=== PATIENT | female | born 1930 | race Caucasian/White ===

== ENCOUNTER 2016-11-10 12:45 | Inpatient (IN) | payer MEDICARE ==
[~2016-11-10] VITALS: Ht 160 cm; Wt 60.8 kg
[~2016-11-10 12:45] MED LIST: AMLO10TA2 PO; ASPI81TA2 PO; ATEN25TA PO; ATOR20TA59 PO; CITA20TA9 PO; INSU100V8 SQ; LOSA100T44 PO; MULT1TAB69 PO
--- OUTSIDE RECORDS SUMMARY | 2016-11-10 12:50 | XMS REPORT | Continuity of Care Document ---
Author Author [facility] Organization [facility] Address Unknown Phone Unavailable Support Name Relationship Address Phone CANDACE URENA MD Caregiver [address] [place] [address] Unavailable WADE HANNA DO Caregiver [address] [place] [address] Unavailable DON LYNN Next Of Kin [address], [place] [address] Insurance Providers Guarantor Libby Lucia Address [address] [place] [address] Email DENIED NO EMAIL Payer [employer] Policy Number [id number] Subscriber's Name KhariLibby Relationship 17 Self Chief Complaint and Reason for Visit Chief Complaint Altered Mental Status Reason for Visit Hypoglycemia associated with diabetes Problems Active Problems Medical Problem Onset Date Status Mental status alteration Unknown Acute Past Problems Medical Problem Onset Date Hypoglycemia associated with diabetes Unknown Medications Current Home Medications Medication Dose Units Route Directions Days Qty Instructions Start Date Amlodipine Besylate 10 Mg Tablet 1 Tab Oral Daily 01/12/15 Aspirin 81 Mg Tab.chew 1 Tab Oral Daily 01/12/15 Atenolol 25 Mg Tablet 1 Tab Oral Daily 01/12/15 Atorvastatin Calcium 20 Mg Tablet 1 Tab Oral Bedtime 01/12/15 Citalopram Hydrobromide (Citalopram Hbr) 20 Mg Tablet 1 Tab Oral Daily 01/12/15 Insulin Glargine,Hum.rec.anlog (Lantus) 100 Unit/Ml Inj 22 Unit Sub-Q Bedtime 01/12/15 Losartan Potassium 100 Mg Tablet 100 Mg Oral Daily 01/12/15 Multivitamin (Multivitamins) 1 Each Tablet 1 Tab Oral Daily 01/12 Social History Social History Problem Response Recorded Date/Time Onset Date Status Chewing Tobacco Status No 06/04/2016 4:34am Not Applicable Not Applicable Hx Substance Use No 06/04/2016 4:34am Not Applicable Not Applicable Hx Alcohol Use No 06/04/2016 4:34am Not Applicable Not Applicable Query Response Start Date Stop Date Smoking Status Never smoker Hospital Discharge Instructions No hospital discharge instructions. Plan of Care Discharge Date 06/04/16 6:41am Disposition 01 DISCHARGED HOME, SELF-CARE Condition at Discharge Improved Instructions/Education Provided DI for Hypoglycemia Prescriptions See Medication Section Referrals WADE HANNA DO Address: [address] [place] [phone] Additional Instructions/Education Reduce evening insulin to 8 units Lantus each night Abdomen additional small snack before bed See Dr. Hanna later this week for recheck Care Plan and Goals Physician Care Plan Problem: Hypoglycemia related to diabetes/insulin Goal: Follow up with primary care provider Instructions: Take medications and follow care plan as discussed/written Reduce evening insulin to 8 units Lantus each night Abdomen additional small snack before bed See Dr. Hanna later this week for recheck Functional Status No functional status results. Allergies, Adverse Reactions, Alerts Allergen Type Severity Reaction Status Last Updated Pentazocine Allergy Unknown Active 06/04/16 Immunizations Query Response on File Recorded Date/Time Hx Influenza Vaccination Y fall 201301/12/15 11:41am Hx Influenza Vaccination Y fall 201301/12/15 11:41am Vital Signs Acute Vital Signs Vital Response Date/Time Temperature (Fahrenheit) 97.6 deg F (96.8 - 99.1) 06/04/2016 6:41am Temperature (Calculated Celsius) 36.77259 degrees C (36.0 - 37.3) 06/04/2016 6:41am Pulse Rate (adult) 62 bpm (60 - 100) 06/04/2016 6:41am Respiratory Rate 16 breaths/min (10 - 20) 06/04/2016 6:41am O2 Sat by Pulse Oximetry 95 % (90 - 100) 06/04/2016 6:41am Blood Pressure 164/73 mm Hg 06/04/2016 6:41am Height (Feet) 5 feet 06/04/2016 4:28am Height (Inches) 6.00 inches 06/04/2016 4:28am Weight (Kilograms) 64.700 kg 06/04/2016 4:28am Height 5 ft 6 in 06/04/2016 4:28am Weight 142.64 lb 06/04/2016 4:28am Body Mass Index 23.0 kg/m^2 06/04/2016 4:28am Results Laboratory Results Test Name Result Units Flags Reference Collection Date/Time Result Date/ Time Comments White Blood Count 12.2 T/MM3 H 4.5-11.0 06/04/2016 5:06/04/2016 5: 25am Red Blood Count 4.96 M/MM3 4.00-5.20 06/04/2016 5:06/04/2016 5: 25am Hemoglobin 13.4 GM/DL 12-16 06/04/2016 5:06/04/2016 5:25am Hematocrit 41.4 % 36-46 06/04/2016 5:06/04/2016 5:25am Mean Corpuscular Volume 83.5 UM3 80-100 06/04/2016 5:06/04/2016 5: 25am Mean Corpuscular Hemoglobin 27.0 UUG 26-34 06/04/2016 5:2015 5:25am Mean Corpuscular Hemoglobin Concent 32.4 GM/DL 31-37 06/04/2016 5:06/04/2016 5:25am RDW Standard Deviation 43.4 FL 36.9-50.2 06/04/2016 5:06/04/2016 5 :25am Platelet Count 227 T/MM3 130-400 06/04/2016 5:06/04/2016 5:25am Mean Platelet Volume 10.6 UM3 9.4-12.4 06/04/2016 5:06/04/2016 5: 25am Neutrophils (%) (Auto) 84.3 % H 33-66 06/04/2016 5:06/04/2016 5: 25am Lymphocytes (%) (Auto) 9.8 % L 23-45 06/04/2016 5:06/04/2016 5: 25am Monocytes (%) (Auto) 5.1 % 0-9.0 06/04/2016 5:06/04/2016 5:25am Eosinophils (%) (Auto) 0.4 % 0-4 06/04/2016 5:06/04/2016 5:25am Basophils (%) (Auto) 0.2 % 0-2 06/04/2016 5:06/04/2016 5:25am Immature Granulocyte % (Auto) 0.2 % 0.0-0.5 06/04/2016 5:2015 5:25am Absolute Neutrophils (auto) 10.3 T/MM3 H 1.8-7.7 06/04/2016 5:06/04 5:25am Absolute Lymphocytes (auto) 1.2 T/MM3 1-4.8 06/04/2016 5:2015 5:25am Absolute Monocytes (auto) 0.6 T/MM3 0-0.8 06/04/2016 5:06/04/2016 5:25am Absolute Eosinophils (auto) 0.1 T/MM3 0-0.5 06/04/2016 5:2015 5:25am Absolute Basophils (auto) 0.0 T/MM3 0-0.2 06/04/2016 5:06/04/2016 5:25am Absolute Immature Granulocyte (auto 0.02 T/MM3 0.00-0.03 06/04/2016 5: 06/04/2016 5:25am Icterus Index < 2 0-7 06/04/2016 5:06/04/2016 5:33am Chemistry Specimen Hemolysis < 15 0-25 06/04/2016 5:06/04/2016 5 :33am 0-25: Specimen Exhibited No Hemolysis. Turbidity < 20 0-20 06/04/2016 5:06/04/2016 5:33am Sodium Level 142 MEQ/L 134-144 06/04/2016 5:06/04/2016 5:33am Potassium Level 3.0 MEQ/L L 3.6-5 06/04/2016 5:06/04/2016 5:33am Chloride Level 104 MEQ/L 98-107 06/04/2016 5:06/04/2016 5:33am Carbon Dioxide Level 29 MEQ/L 22-30 06/04/2016 5:06/04/2016 5: 33am Anion Gap 9 MEQ/L 5-15 06/04/2016 5:06/04/2016 5:33am Blood Urea Nitrogen 13.0 MG/DL 7-17 06/04/2016 5:06/04/2016 5: 33am Creatinine 0.7 MG/DL 0.7-1.2 06/04/2016 5:06/04/2016 5:33am BUN/Creatinine Ratio 19 RATIO 6-26 06/04/2016 5:06/04/2016 5:33am Glomerular Filtration Rate Calc 79 06/04/2016 5:06/04/2016 5: 33am Glucose Level 107 MG/DL 65-110 06/04/2016 5:06/04/2016 5:33am Calculated Osmolality 273 MOSM/KG 261-280 06/04/2016 5:06/04/2016 5:33am Calcium Level 9.2 MG/DL 8.4-10.2 06/04/2016 5:06/04/2016 5:33am Total Bilirubin 0.80 MG/DL 0.20-1.30 06/04/2016 5:06/04/2016 5: 33am Alkaline Phosphatase 74 U/L 38-126 06/04/2016 5:06/04/2016 5:33am Total Protein 6.7 G/DL 6.3-8.2 06/04/2016 5:06/04/2016 5:33am Albumin 3.9 G/DL 3.5-5.0 06/04/2016 5:06/04/2016 5:33am Globulin 2.8 G/DL 2.4-3.6 06/04/2016 5:06/04/2016 5:33am Albumin/Globulin Ratio 1.4 RATIO 1.1-2.2 06/04/2016 5:06/04/2016 5 :33am Aspartate Amino Transf (AST/SGOT) 24 U/L 14-36 06/04/2016 5:2015 5:33am Alanine Aminotransferase (ALT/SGPT) 25 U/L 9-52 06/04/2016 5:06/04 5:33am Urine Collection Type STRAIGHT CATH 06/04/2016 5:48am 06/04/2016 5: 59am Urine Color YELLOW YELLOW 06/04/2016 5:48am 06/04/2016 5:59am Urine Turbidity CLEAR CLEAR 06/04/2016 5:48am 06/04/2016 5:59am Urine Specific [place] 1.020 1.015-1.025 06/04/2016 5:48am 2015 5:59am Urine pH 7.5 5.0-8.0 06/04/2016 5:48am 06/04/2016 5:59am Urine Leukocyte Esterase NEGATIVE NEGATIVE 06/04/2016 5:48am 2015 5:59am Urine Nitrite NEGATIVE NEGATIVE 06/04/2016 5:48am 06/04/2016 5:59am Urine Protein 1+ A NEGATIVE 06/04/2016 5:48am 06/04/2016 5:59am Urine Glucose (UA) 2+ A NEGATIVE 06/04/2016 5:48am 06/04/2016 5:59am Urine Ketones NEGATIVE NEGATIVE 06/04/2016 5:48am 06/04/2016 5:59am Urine Urobilinogen 0.2 EU/DL NORMAL 06/04/2016 5:48am 06/04/2016 5: 59am Urine Bilirubin NEGATIVE NEGATIVE 06/04/2016 5:48am 06/04/2016 5: 59am Urine Blood TRACE-LYSED A NEGATIVE 06/04/2016 5:48am 06/04/2016 5: 59am Urine WBC 1-3 /HPF 0-5 06/04/2016 5:48am 06/04/2016 6:15am Urine RBC 0-1 /HPF 0-3 06/04/2016 5:48am 06/04/2016 6:15am Urine Squamous Epithelial Cells 0-5 06/04/2016 5:48am 06/04/2016 6: 15am Urine Bacteria TRACE H NEGATIVE 06/04/2016 5:48am 06/04/2016 6:15am Urine Culture Indicated CULT NOT INDICATED 06/04/2016 5:48am 2015 6:15am Glucometer 153 mg/dL H 65-110 06/04/2016 5:47am 06/04/2016 5:52am Procedures No known history of procedures. Encounters Encounter Location Arrival/Admit Date Discharge/Depart Date Attending Provider Departed Emergency Room [facility] 06/04/16 4:15am 06/04/16 6: 41am CANDACE URENA MD Recent Diagnosis
[2016-11-10] MEDS ORDERED: DONE10TA30 PO (13:03)
--- NOTE | 2016-11-10 13:07 | NUR ---
DR DR KNIGHT AT BEDSIDE.
--- NOTE | 2016-11-10 13:34 | NUR ---
STATUS PER RADIOLOGY STAFF, PT REQUESTS PAIN MEDICINE PRIOR TO XRYS. STATUS REPORTED TO DR KNIGHT.
[2016-11-10] MEDS ORDERED: PROMETHAZINE 25 MG INJECTION IM ONE (13:45)
[2016-11-10] MEDS ORDERED: HYDROMORPHONE 2mg/ml INJECTION IM ONE (13:45)
--- NOTE | 2016-11-10 13:55 | NUR ---
RADIOLOGY PT TO RADIOLOGY VIA [facility].
--- NOTE | 2016-11-10 14:14 | NUR ---
RADIOLOGY PT RETURNED.
--- NOTE | 2016-11-10 14:52 | NUR ---
DR DR KNIGHT AT BEDSIDE.
--- NOTE | 2016-11-10 15:00 | ERPDOC ---
Departure Disposition Decision Date: Nov 10, 2016 Disposition Decision Time: 15:03 Disposition: [address] [facility] Impression Impression Impression: Primary Impression: Femoral neck fracture Severity: Moderate Condition: Stable Seen By: Physician only Referrals: WADE HANNA DO (Family) Problems/Meds/Labs Reviewed?: Yes Medications reviewed and manag: Yes Follow up care ordered?: Yes Mental Status: Alert, Oriented HPI - Fall/Injury General Chief Complaint: Fall Stated Complaint: FALL 5 DAYS AGO LEFT HIP PAIN Time Seen by Provider: 13:06 HPI - Fall/Injury Initial Comments 86-year-old female presents with left hip pain. Patient fell approximately a week ago, has had some pain in the hip since then but has been up moving ambulating. Today the pain became bad enough she was in tears as she tried to walk, she finally agreed to let her granddaughter bring her to the emergency department. Patient has severe pain trying to bear weight, much more comfortable lying on her back with her foot externally rotated. No fever or chills no other injuries. Allergies: Coded Allergies: pentazocine (Verified Allergy, Unknown, 11/10/16) Past History Past Medical History Metabolic: diabetes, hypertension GI: gallbladder disease Female: UTI Neurological: TIA Psychological: dementia, depression Surgical History General: appendix, gallbladder Family History Family PMH: FOUND: hypertension Vaccines Hx Influenza Vaccination: Yes (FALL 2013) Social History Smoking Status: Never smoker Does patient use chewing tobac: No Second Hand Exposure: No Substance Use Type: does not use Alcohol Intake: none Record Review Pertinent history updated: Yes Review of Systems Musculoskeletal General: see HPI All other Systems All Other Systems: Reviewed and Negative Physical Exam General General Nourishment: well nourished, well developed, appears stated age, no acute distress General Body Habitus: disheveled Vitals and Pain First Documented Vital Signs Date Time Temp Pulse Resp B/P Pulse Ox O2 Delivery O2 Flow Rate FiO2 11/10/16 12:47 97.4 65 20 182/81 100 Room Air Weight: Kilograms: 61.500 Height (feet): 5 Height (inches): 4.00 Triage Pain Scale: Normal Exams: Head: Normocephalic w/o trauma Chest/Resp: Clear all naqvi, with good airflow, and symmetry bilaterally CV: Regular rate and rhythm, without murmur or gallop, Pulses 2+ all extremities, capillary refill, <2 seconds all ext., no pedal edema noted Abdomen: Bowel sounds positive, soft, non-tender, non-distended, no hepatosplenomegaly, masses or bruits noted Neurologic: Patient is alert, and oriented, cranial nerves, motor/sensory/ cerebellar, exams w/o gross deficits, to observation Psychiatric: Patient exhibits, appropriate attention, emotion and affect Musculoskeletal (brief) Comments Tenderness left greater trochanter. Patient will not allow me to lift her leg due to pain. Foot is externally rotated for comfort. Differential Diagnoses Considering: Contusion, Dislocation, Fracture, Strain, Other (hip fracture, hip dislocation) Progress Results/Orders Orders Procedure Category Date Status Time Hip Left 2 View RAD 11/10/16 Taken 13:10 Promethazine PHA 11/10/16 Complete (Phenergan) 13:45 Hydromorphone PHA 11/10/16 Complete (Dilaudid) 13:45 Chest 1 View RAD 11/10/16 Taken 14:07 Medications Current ED Medications Promethazine HCl (Phenergan) 25 mg O ONCE IM Last administered on 11/10/16 13 :49; Start 11/10/16 at 13:45; Stop 11/10/16 at 13:46; Status DC Hydromorphone HCl (Dilaudid) 0.5 mg O ONCE IM Last administered on 11/10/16t 13:47; Start 11/10/16 at 13:45; Stop 11/10/16 at 13:46; Status DC Progress Progress X-ray shows femur neck fracture. It is quite impressive that the patient is able to ambulate for a week on this. She is amenable to having surgery. Dr. Perry was consulted and is evaluating appropriate treatment. Patient will be admitted to hospitalist, Dr. Sosa accepted the admission. Patient is nothing by mouth with IV fluids. She was given 0.5 mg Dilaudid and 25 mg Phenergan IM. Had excellent pain relief with that. JAMARCUS KNIGHT MD Nov 10, 2016 15:00
--- NOTE | 2016-11-10 15:22 | NUR ---
REPORT GIVEN TO [facility].
--- NOTE | 2016-11-10 15:35 | NUR ---
DEPART TO SURGICAL 111 VIA CART, GRANDDAUGHTER AT BEDSIDE AT DEPART.
--- NOTE | 2016-11-10 15:35 | NUR ---
Admit Pt admitted to room 111 at this time from ED via cart.
[2016-11-10] MEDS ORDERED: FENTANYL 100mcg/2ml INJECTION IV ONE (15:45)
[2016-11-10 15:50] VITALS: BP 179/79; PULSE 64; RESP 16; O2SAT 100
[2016-11-10 15:52] VITALS: Ht 160 cm; Wt 60.8 kg
[2016-11-10] MEDS ORDERED: ACETAMINOPHEN 325 MG TABLET PO PRN (16:00)
[2016-11-10] MEDS ORDERED: ALBUTEROL INH.SOLN. 2.5 MG/0.5 ML (0.5%) Neb. AEROSOL PRN (16:00)
[2016-11-10] MEDS ORDERED: MILK OF MAGNESIA 30 ML SUSP PO PRN (16:00)
[2016-11-10] MEDS ORDERED: ONDANSETRON 4mg/2ml INJECTION IV PRN (16:00)
[2016-11-10] MEDS ORDERED: ACETAMINOPHEN 650 MG SUPPOSITORY RECTALLY PRN (16:00)
[2016-11-10] MEDS ORDERED: OLANZAPINE ZYDIS PO PRN (16:30)
[2016-11-10] MEDS ORDERED: ENOXAPARIN 40 MG/0.4 ML INJECTION SQ ONE (16:30)
[2016-11-10 16:34] LABS: HGB - HEMOGLOBIN 13.1 GM/DL (12-16); MEAN CORPUSCULAR HGB 26.4 UUG (26-34); MEAN CORPUSCULAR HGB CONC(MCHC 32.8 GM/DL (31-37); MEAN CORPUSCULAR VOLUME 80.6 UM3 (80-100); MEAN PLATELET VOLUME 10.7 UM3 (9.4-12.4); RED BLOOD COUNT 4.96 M/MM3 (4.00-5.20); WBC - WHITE BLOOD COUNT 10.1 T/MM3 (4.5-11.0)
--- NOTE | 2016-11-10 16:39 | HPPDOC ---
DANAY MCCONNELL Mitchell [employer] 11/10/16 1607: HPI - Adult Date DATE: 11/10/16 TIME: 16:07 General Chief Complaint: left hip pain History of Present Illness Radha Lucia is an 86 y/o lady with a hx of Alzheimer dementia. She lives at her granddaughter's house, and her granddaughter is her animal caretaker supervisor. Radha is a poor historian, and was unable to answer questions. ROS was limited because of her dementia and acute pain, and granddaughter had limited knowledge regarding PMH. Per granddaughter's report, Radha slipped and fell in the kitchen 5 days ago. She has been ambulatory since then up until 2 days ago. Her granddaughter is worried she might have fallen again, though it would most have likely been in the middle of the night and unwitnessed. Radha has not been able to bear weight and has been complaining of severe left hip pain. She otherwise has been in good health - no recent fever or chills, URI symptoms, difficulty breathing, n/v/d, or urinary changes. She did have the stomach flu about 1 month ago and her appetite isn't quite back up to par. Radha's granddaughter tried to help her in the car, but she was unable to get her safely loaded, and activated 911. She was transported to the ED where left hip xray confirmed left hip fracture. She received IM Phenergan and Dilaudid in the ED as well. Dr. Mathews was contacted, and the patient was admitted to inpatient status. LOS is expected to exceed two overnights given need for surgical intervention. Past Medical History Past Medical History Patient's Medical History: (1) TIA (transient ischemic attack) (2) CAD (coronary artery disease) (3) HTN (hypertension) (4) Type 2 diabetes mellitus (5) Alzheimer's dementia Surgical History Patient's Surgical History: Coronary stent Appendectomy Cholecystectomy Current Medications Home Meds Reported Medications Donepezil HCl (Donepezil HCl) 10 Mg Tablet, 10 MG PO DAILY 11/10/16 Insulin Glargine,Hum.rec.anlog (Lantus) 100 Unit/Ml Inj, 6-10 UNIT SQ HS 01/12/15 Aspirin (Aspirin) 81 Mg Tab.chew, 81 MG PO DAILY 01/12/15 Multivitamin (Multivitamins) 1 Each Tablet, 1 TAB PO DAILY 01/12/15 Atenolol (Atenolol) 25 Mg Tablet, 25 MG PO BID 01/12/15 Citalopram Hydrobromide (Citalopram HBr) 20 Mg Tablet, 20 MG PO DAILY 01/12/15 Amlodipine Besylate (Amlodipine Besylate) 10 Mg Tablet, 10 MG PO DAILY 01/12/15 Atorvastatin Calcium (Atorvastatin Calcium) 20 Mg Tablet, 20 MG PO HS 01/12/15 Losartan Potassium (Losartan Potassium) 100 Mg Tablet, 100 MG PO DAILY 01/12/15 Allergies: Coded Allergies: pentazocine (Verified Allergy, Unknown, 11/10/16) Family History Family History: Unobtainable from patient. Social History Smoking Status: Never smoker Does patient use chewing tobac: No Second Hand Exposure: No Substance Use Type: does not use Alcohol Intake: none Advance Directives: No DPOA for Healthcare Only Review of Systems Unable to Obtain ROS Due to: dementia Comments Limited ROS obtained per granddaughter - see HPI Constitutional: REPORTS: weight loss (used to wear size XL now is almost a small. Gradual weight loss over the last couple of years.) Physical Exam General General Nourishment: well nourished, well developed, thin Vital Signs Vital Signs Date Time Temp Pulse Resp B/P Pulse Ox O2 Delivery O2 Flow Rate FiO2 11/10/16 15:55 16 11/10/16 15:50 64 179/79 100 Room Air 11/10/16 15:30 98.7 Height (Feet): 5 Height (Inches): 3.00 Eyes Brief: FOUND: PERRL, NOT FOUND: scleral icterus ENMT Brief: NOT FOUND: mucosa moist (slightly dry) Neck Brief: NOT FOUND: adenopathy Respiratory Auscultation: FOUND: normal Cardiovascular Auscultation: FOUND: S1, S2, regular Peripheral Pulses: 2+: Dorasalis Pedis (L), Dorsalis Pedis (R), Posterior Tibial (L), Posterior Tibial (R), Radial (L), Radial (R) Edema: 0: Anasarca, Arm (L), Arm (R), Face, Leg (L), Leg (R) Abdomen Inspection: NOT FOUND: distention Palpation: FOUND: soft, NOT FOUND: tender Auscultation: FOUND: normo active Musculoskeletal (brief) Musculoskeletal Brief: FOUND: deformity (left leg shortened) Integumentary (brief) Integumentary Brief: FOUND: dry, warm Neurologic (brief) Neurological Brief: FOUND: cranial 2-12 intact (grossly intact but pt is unable to follow commands consistently) Neurologic GCS Eye Opening: (4)Spontaneous GCS Verbal: (4)Confused GCS Motor: (6)Obeys Commands RN Documented GCS Eye Opening: (4)Spontaneous Verbal: (4)Confused Motor: (6)Obeys Commands Total: 14 - suspect baseline Psychiatric (brief) FOUND: alert, attentive, oriented (to self) Assessment & Plan Problems: (1) Femoral neck fracture Status: Acute (2) Alzheimer's dementia Status: Chronic (3) CAD (coronary artery disease) Status: Chronic (4) HTN (hypertension) Status: Chronic (5) Type 2 diabetes mellitus Status: Chronic (6) TIA (transient ischemic attack) Status: Chronic Plan/Intensity of Service Admit, inpatient status. Dr. Mathews attending. PCP: Dr. Tamez Code status: Granddaughter believes that patient would want DNR, but no orders have been signed. Will leave full code for the time being. Consult CM to help with advanced directives and to assist with discharge planning. Granddaughter was advised that she will most likely need to go to SNF or rehab after hospital stay. Dx: Left femoral neck fracture. Consult Dr. Perry. He will plan on sx tomorrow am. OK with 1-time dose of Lovenox now. Need to medically clear - labs have been ordered after arrival to the surgical unit - CBC, CMP, INR for preop clearance; type and screen because of fracture and blood loss; check TSH, vitamin B12, and prealbumin with hx of dementia and decreased appetite. Check A1c d/t DM. Insert Leggett catheter for comfort and check UA. Check EKG - mild bradycardia noted . Monitor blood glucose QID. Cont. Lantus HS. Hold ASA, amlodipine, and losartan to minimize chance of periop. hypotension. Continue BB for now. Hx of dementia - will ask ST to evaluate her given risk for dysphagia. She's also at risk of acute delirium. Will have Zyprexa Zydis available if needed. DVT Prophylaxis: SCD'S Code Status Full Code Hospital Course Summary Disclaimer The hospital course summary below is not to be considered part of the above Progress Note. Hospital Course Summary 11/10/16 Admit, inpatient status. Dr. Mathews attending. PCP: Dr. Tamez Code status: Granddaughter believes that patient would want DNR, but no orders have been signed. Will leave full code for the time being. Consult CM to help with advanced directives and to assist with discharge planning. Granddaughter was advised that she will most likely need to go to SNF or rehab after hospital stay. Dx: Left femoral neck fracture. Consult Dr. Perry. He will plan on sx tomorrow am. OK with 1-time dose of Lovenox now. Need to medically clear - labs have been ordered after arrival to the surgical unit - CBC, CMP, INR for preop clearance; type and screen because of fracture and blood loss; check TSH, vitamin B12, and prealbumin with hx of dementia and decreased appetite. Check A1c d/t DM. Insert Leggett catheter for comfort and check UA. Check EKG - mild bradycardia noted . Monitor blood glucose QID. Cont. Lantus HS. Hold ASA, amlodipine, and losartan to minimize chance of periop. hypotension. Continue BB for now. Hx of dementia - will ask ST to evaluate her given risk for dysphagia. She's also at risk of acute delirium. Will have Zyprexa Zydis available if needed. KATIE MATHEWS MD 11/10/161922: Past Medical History Current Medications Home Meds Reported Medications Donepezil HCl (Donepezil HCl) 10 Mg Tablet, 10 MG PO DAILY 11/10/16 Insulin Glargine,Hum.rec.anlog (Lantus) 100 Unit/Ml Inj, 6-10 UNIT SQ HS 01/12/15 Aspirin (Aspirin) 81 Mg Tab.chew, 81 MG PO DAILY 01/12/15 Multivitamin (Multivitamins) 1 Each Tablet, 1 TAB PO DAILY 01/12/15 Atenolol (Atenolol) 25 Mg Tablet, 25 MG PO BID 01/12/15 Citalopram Hydrobromide (Citalopram HBr) 20 Mg Tablet, 20 MG PO DAILY 01/12/15 Amlodipine Besylate (Amlodipine Besylate) 10 Mg Tablet, 10 MG PO DAILY 01/12/15 Atorvastatin Calcium (Atorvastatin Calcium) 20 Mg Tablet, 20 MG PO HS 01/12/15 Losartan Potassium (Losartan Potassium) 100 Mg Tablet, 100 MG PO DAILY 01/12/15 Allergies: Coded Allergies: pentazocine (Verified Allergy, Unknown, 11/10/16) Assessment & Plan Problems: (1) Femoral neck fracture Status: Acute (2) TIA (transient ischemic attack) Status: Chronic (3) CAD (coronary artery disease) Status: Chronic (4) HTN (hypertension) Status: Chronic (5) Type 2 diabetes mellitus Status: Chronic (6) Alzheimer's dementia Status: Chronic (7) Abnormal EKG Assessment & Plan: Sinus bradycardia, first-degree block, left atrial enlargement, moderate ST depression. Patient asymptomatic (8) Elevated TSH Status: Acute (9) Hypokalemia Status: Acute (10) UTI (urinary tract infection) Status: Acute Assessment 11/10/2016-I reviewed this chart, the patient history, and the [employer]'s/PA's documented findings as above. We discussed and formulated the assessment and plan as above with the additions below.-Dr. Mathews I've seen and examined the patient and talked with the patient's granddaughter. Currently the patient denies any pain at rest. She denies shortness of breath. Her granddaughter states she ate too sure [employer] for supper. She was restless earlier today but it is better now. She's been in her usual state of health. She had some chest discomfort last week on a couple of occasions and then belched several times and symptoms resolved. Her granddaughter assumed this was indigestion. Otherwise the patient has had no chest pains. On exam the patient is alert and in no acute distress. She has significant dementia. Chest is clear to auscultation. Cardiovascular reveals a regular rate and rhythm without murmur. Abdomen is soft and nontender. Extremities are free of edema. Lab work is reviewed and CMP is essentially normal other than potassium of 3.1 and glucose of 205. CBC is essentially normal. TSH is elevated at 6.24. Pre- albumin is mildly low at 17.2. Hemoglobin A1c is 10.2 Urinalysis shows positive leukocyte esterase, 10-20 white blood cells, 2+ bacteria. Culture is pending EKG shows sinus bradycardia with first-degree AV block. Left atrial enlargement. Moderate ST depression Chest x-ray on my read looks okay Impression left hip fracture History of TIA Dementia-continue Aricept Coronary artery disease-continue beta sharon Hypertension-hold Norvasc and losartan for now Type 2 diabetes mellitus with A1c of 10.5 on Lantus-continue Lantus and give sliding scale insulin UTI-start Rocephin Mildly elevated TSH-start low-dose Synthroid Mild hypokalemia-replace orally and check magnesium Mildly abnormal EKG-check troponin. Patient is not a good historian secondary to dementia We'll get a metabolic bone disease consult Troponin is pending, and if this is normal I think the patient is stable for surgery tomorrow. Recheck potassium tomorrow. DANAY MCCONNELL APRN Nov 10, 2016 16:07 KATIE MATHEWS MD Nov 10, 2016 19:23
[2016-11-10 16:44] LABS: ALBUMIN 3.6 G/DL (3.5-5.0); ALBUMIN/GLOBULIN RATIO 1.1 RATIO (1.1-2.2); ALKALINE PHOSPHATASE 148 U/L (38-126); ALT (SGPT) 29 U/L (9-52); ANION GAP 11 MEQ/L (5-15); AST (SGOT) 18 U/L (14-36); BUN/CREATININE RATIO 27 RATIO (6-26); CALCIUM 8.4 MG/DL (8.4-10.2); CHLORIDE 103 MEQ/L (98-107); CO2 - CARBON DIOXIDE 28 MEQ/L (22-30); CREATININE 0.7 MG/DL (0.7-1.2); GLOMERULAR FILTRATION RATE 79; GLUCOSE 205 MG/DL (65-110); POTASSIUM 3.1 MEQ/L (3.6-5); SODIUM 142 MEQ/L (134-144); TOTAL PROTEIN 6.8 G/DL (6.3-8.2)
[2016-11-10 16:56] LABS: INR 1.28 (0.76-1.04)
[2016-11-10 17:04] LABS: BAND NEUTROPHILS # 0.1 T/MM3; LYMPHOCYTES # (MANUAL) 0.7 T/MM3 (1-4.8); METAMYELOCYTES # 0.1 T/MM3; MONOCYTES # (MANUAL) 0.1 T/MM3 (0-0.8); NEUTROPHILS #(MANUAL)-ABSOLUTE 9.1 T/MM3 (1.8-7.7); TOTAL CELLS COUNTED 100 %
[2016-11-10 17:11] LABS: PREALBUMIN 17.2 MG/DL (17.6-36.0)
[2016-11-10] MEDS: HYDROMORPHONE 2mg/ml INJECTION IV PRN (17:21)
[2016-11-10 17:28] LABS: BLOOD, URINE TRACE-INTACT (NEGATIVE); COLOR,URINE YELLOW (YELLOW); LEUKOCYTE ESTERASE ,URINE 1+ (NEGATIVE); NITRITE,URINE NEGATIVE (NEGATIVE); UROBILINOGEN,URINE 0.2 EU/DL (NORMAL)
--- NOTE | 2016-11-10 17:30 | NUR ---
Leggett Insertion Leggett inserted at this time using sterile technique by EITAN Mejia accompanied by this RN. Pubic hair trimmed prior to nan-care. RN and NT noted caked on barrier cream applied by granddaughter that morning (reported by granddaughter). Nan-area was cleaned with soap and water, as well as Cavillon Avinger. Iodine used during sterile insertion. x1 attempt. Pt tolerated well. Urine cloudy, yellow and pale. Urine Specimen collected at this time. Will continue to monitor.
--- NOTE | 2016-11-10 17:33 | ANESPREOP ---
Anesthesia Record Date and Time DATE: 11/10/16 TIME: 17:26 Proposed Surgical Procedure Allergies: Coded Allergies: pentazocine (Verified Allergy, Unknown, 11/10/16) Ht/Wt/BMI Height: 5 ' 3.00 " Weight: 61.500 kg BMI: 24.0 kg/m2 Vital Signs Date Time Temp Pulse Resp B/P Pulse Ox O2 Delivery O2 Flow Rate FiO2 11/10/16 17:21 18 11/10/16 15:50 64 179/79 100 Room Air 11/10/16 15:30 98.7 Medications Inpatient Medications Current Medications Medications (Trade) Dose Ordered Sig/Hosea Start Time Stop Time Status Last Admin Dose Admin Hydromorphone HCl (Dilaudid) 0.5 mg Q3H PRN 11/10/16 16:00 11/10/16 17:21 0.5 MG Ondansetron HCl 4 mg 4 mg Q6H PRN 11/10/16 16:00 Lactated Ringer's (Lactated Ringers) 1,000 ml @ 75 mls/hr [id number] 11/10/16 16:00 Polyethylene Glycol (Miralax) 17 g DAILY 11/11/16 09:00 Senna/Docusate Sodium (Senna Plus) 1 tab BID 11/10/16 21:00 Magnesium Hydroxide (Mom) 30 ml DAILY PRN 11/10/16 16:00 Acetaminophen (Tylenol Suppository) 650 mg Q6H PRN 11/10/16 16:00 Albuterol (Proventil) 2.5 mg Q2HR PRN 11/10/16 16:00 Acetaminophen (Tylenol Regular Strength) 1-2 Q5H PRN 11/10/16 16:00 Atenolol (TENORMIN 25 mg) 25 mg BID 11/10/16 21:00 Atorvastatin Calcium (LIPITOR 20 mg) 20 mg HS 11/10/16 22:00 Citalopram Hydrobromide (Celexa) 20 mg DAILY 11/11/16 09:00 Donepezil HCl (Aricept) 10 mg HS 11/11/16 22:00 Insulin Glargine (Lantus) 6 unit HS 11/10/16 22:00 Multivitamins/ Minerals (Therapeutic - M) 1 tab DAILY 11/11/16 09:00 Olanzapine (Zyprexa Zydis) 5 mg Q6H PRN 11/10/16 16:30 Amlodipine Besylate (Amlodipine Besylate) 10 Mg Tablet, 10 MG PO DAILY, ( Reported) Last Taken: on 11/09/16 08 Aspirin (Aspirin) 81 Mg Tab.chew, 81 MG PO DAILY, (Reported) Last Taken: on 11/09/16 08 Atenolol (Atenolol) 25 Mg Tablet, 25 MG PO BID, (Reported) Last Taken: on 11/09/161999 Atorvastatin Calcium (Atorvastatin Calcium) 20 Mg Tablet, 20 MG PO HS, (Reported) Last Taken: on 11/09/161999 Citalopram Hydrobromide (Citalopram HBr) 20 Mg Tablet, 20 MG PO DAILY, (Reported) Last Taken: on 11/09/16799 Donepezil HCl (Donepezil HCl) 10 Mg Tablet, 10 MG PO DAILY, (Reported) Last Taken: on 11/10/16 08 Insulin Glargine,Hum.rec.anlog (Lantus) 100 Unit/Ml Inj, 6-10 UNIT SQ HS, (Reported) Last Taken: on 11/09/161999 Losartan Potassium (Losartan Potassium) 100 Mg Tablet, 100 MG PO DAILY, (Reported) Last Taken: on 11/09/16799 Multivitamin (Multivitamins) 1 Each Tablet, 1 TAB PO DAILY, (Reported) Last Taken: on 11/09/16 0800 Currently on Beta Carlos: Yes Beta Carlos not given due to: Other (npo) Medical/Surgical History Anesthesia PMH: Reports: *ASHD (CAD S/P STENT PLACEMENT 2012 IN [place]), * Diabetes, *Hypertension, CVA/Stroke/TIA (HX OF MINI STROKE 1999), Murmur, Other (stomach flu 3 weeks ago. Patient with history of alzheimers) Smoking Status: Never smoker Use Chewing Tobacco?: No Second Hand Exposure: No Substance Use Type: does not use Past Surgical History Orthopedic Surgeries: No Abdominal Surgeries: Yes - TRISTEN GRAMAJO Genitourinary Surgeries: No Cardiac Surgeries: Yes - STENTS NOVEMBER 2012 Endocrine Surgeries: No Reproductive Surgeries: No Neurological Surgeries: No Ear Surgeries: No Nose Surgeries: No Throat Surgeries: No Other Surgeries: No Anesthesia Adverse Reactions: FOUND none Family Hx of Anesthesia Advers: none Pertinent Findings Laboratory Tests 11/10/16 16:19 Test 11/10/16 16:19 Prothromb Time International Ratio 1.28 (0.76-1.04) Physical Exam Respiratory: Lungs clear Cardiovascular: FOUND Regular rate, rhythm, FOUND Systolic murmur Airway Assessment Mallampati Score: III TMD: 2 Fingerbreadths Neck Extension: Fair Teeth: Other (edentulous) Overall Assessment: No Airway Concerns ASA: 3, E Plan Anesthesia Plan: GETA Discussion Discussed risks/options/alternatives of anesthesia and questions answered. Patient consents. Nursing pain assessment noted. Present: [facility] Member [facility] Attestation Statement Prior to the delivery of any anesthetic medication, I examined the patient, developed the plan, obtained the patient's consent and discussed the risk and benefits of the procedure with the patient/guardian. ADDI HORVATH CRNA Nov 10, 2016 17:32
[2016-11-10 17:34] LABS: BACTERIA,URINE 2+ (NEGATIVE); RBC,URINE 0-1 /HPF (0-3); WBC CLUMPS,URINE MODERATE
[2016-11-10 17:35] LABS: SQUAMOUS EPITHELIAL CELL,UR NONE SEEN
[2016-11-10] MEDS: LR 1,000 ML IV SCH (17:44)
[2016-11-10 18:36] VITALS: PULSE 64; RESP 18
[2016-11-10] MEDS ORDERED: DEXTROSE 50% SYRINGE 50ml (Eq. 1 AMP) IV PRN (19:00)
[2016-11-10] MEDS ORDERED: CEFTRIAXONE 1 G in NORMAL SALINE 100 ML IV SCH (19:00)
[2016-11-10] MEDS ORDERED: POTASSIUM CHLORIDE 20 MEQ TABLET PO ONE (19:00)
[2016-11-10] MEDS ORDERED: GLUCOSE ORAL GEL 40% 37.5 G TUBE PO PRN (19:00)
[2016-11-10 20:00] VITALS: BP 147/69; PULSE 51; RESP 14; TEMP 98.4; O2SAT 93
[2016-11-10] MEDS: ATENOLOL 25 MG TABLET PO SCH (22:29)
[2016-11-10] MEDS: ATORVASTATIN 20 MG TABLET PO SCH (22:29)
[2016-11-10] MEDS: INSULIN GLARGINE 100 UNIT/ML SQ SCH (22:31)
[2016-11-10] MEDS: SENNA + DOCUSATE TAB PO SCH (22:31)
[2016-11-10] MEDS: INSULIN LISPRO 100 UNIT/ML SQ PRN (22:54)
[2016-11-11] VITALS (26 sets, daily range): BP systolic 129–183; BP diastolic 62–81; PULSE 55–88; RESP 15–22; TEMP 96.3–98.4; O2SAT 91–97
[2016-11-11] MEDS: HYDROMORPHONE 2mg/ml INJECTION IV PRN ×2 (01:10→23:36)
[2016-11-11 03:46] LABS: BASOPHILS % (AUTO) 0.3 % (0-2); EOSINOPHILS # (AUTO) 0.1 T/MM3 (0-0.5); EOSINOPHILS % (AUTO) 1.6 % (0-4); HCT - HEMATOCRIT 36.4 % (36-46); HGB - HEMOGLOBIN 11.4 GM/DL (12-16); IMMATURE GRANULOCYTE # (AUTO) 0.01 T/MM3 (0.00-0.03); IMMATURE GRANULOCYTE % (AUTO) 0.2 % (0.0-0.5); LYMPHOCYTES # (AUTO) 1.2 T/MM3 (1-4.8); LYMPHOCYTES % (AUTO) 19.9 % (23-45); MEAN CORPUSCULAR HGB 25.6 UUG (26-34); MEAN CORPUSCULAR HGB CONC(MCHC 31.3 GM/DL (31-37); MEAN CORPUSCULAR VOLUME 81.8 UM3 (80-100); MEAN PLATELET VOLUME 10.5 UM3 (9.4-12.4); MONOCYTES # (AUTO) 0.4 T/MM3 (0-0.8); MONOCYTES % (AUTO) 7.1 % (0-9.0); NEUTROPHILS #(AUTO)-ABSOLUTE 4.4 T/MM3 (1.8-7.7); NEUTROPHILS % (AUTO) 70.9 % (33-66); RED BLOOD COUNT 4.45 M/MM3 (4.00-5.20); WBC - WHITE BLOOD COUNT 6.2 T/MM3 (4.5-11.0)
[2016-11-11 03:55] LABS: ANION GAP 6 MEQ/L (5-15); BUN/CREATININE RATIO 27 RATIO (6-26); CHLORIDE 106 MEQ/L (98-107); CO2 - CARBON DIOXIDE 28 MEQ/L (22-30); CREATININE 0.7 MG/DL (0.7-1.2); GLOMERULAR FILTRATION RATE 79; GLUCOSE 109 MG/DL (65-110); POTASSIUM 3.7 MEQ/L (3.6-5); SODIUM 140 MEQ/L (134-144)
[2016-11-11] MEDS: LR 1,000 ML IV SCH ×3 (05:20→19:56)
[2016-11-11] MEDS: LEVOTHYROXINE 25 MCG TABLET PO SCH (06:26)
[2016-11-11] MEDS ORDERED: CEFAZOLIN 1 G in NORMAL SALINE 100 ML IV ONE (07:00)
[2016-11-11] MEDS ORDERED: LIDOCAINE 1% (10mg/ml) 30ml SDV ONE (07:06)
[2016-11-11] MEDS ORDERED: BUPIVACAINE 0.25%/EPI 1:200,000 30ml SDV ONE (07:06)
[2016-11-11] MEDS ORDERED: VANCOMYCIN 1 GRAM INJECTION ONE (07:07)
[2016-11-11] MEDS ORDERED: FENTANYL 250mcg/5ml INJECTION ONE (07:09)
[2016-11-11] MEDS ORDERED: PROPOFOL 200mg 20 ML IV ONE (07:10)
[2016-11-11] MEDS ORDERED: ROCURONIUM 50mg/5ml INJECTION IV ONE (07:10)
--- NOTE | 2016-11-11 07:28 | CONSPD ---
Consultation Info Date DATE: 11/11/16 TIME: 07:23 Reason for Consultation: left displaced femoral neck fx Impression/Recommendation Impression/Recommendation: (1) Femoral neck fracture Status: Acute Qualifiers: Encounter type: initial encounter Fracture type: closed Laterality: left Qualified Codes: S72.002A - Fracture of unspecified part of neck of left femur, initial encounter for closed fracture Recommendation: Cemented left hip hemiarthroplasty. I spoke into the granddaughter who is at the bedside about the surgery and recovery. I called the daughter on the phone but was unable to reach her this morning. Ortho HPI HPI Elements Location: FOUND hip (left) Injury: Yes Pain: FOUND stabbing, FOUND sharp Onset: Sudden Severity: FOUND moderate Duration: FOUND several days Previous Surgery: No Previous Injury: No Treatments Tried: FOUND rest X-ray Findings: FOUND femoral neck fracture Recommendation: FOUND FHR HPI This is a kind 86-year-old female with dementia who lives with her granddaughter. The granddaughter notes that she fell about a week ago and has had increasing hip pain since that time. Yesterday she was unable any longer to bear weight and was brought to the emergency room by EMS. She was then found to have a displaced left femoral neck fracture and was admitted to the hospitalist was consulted for surgical intervention. The patient does have dementia but does not report to me any previous history of left hip pain or surgery. Review of Systems Unable to Obtain ROS Due to: dementia Constitutional: REPORTS: weight loss (used to wear size XL now is almost a small. Gradual weight loss over the last couple of years.) Past Medical History Adult Past Medical History Patient History: (1) TIA (transient ischemic attack) (2) CAD (coronary artery disease) (3) HTN (hypertension) (4) Type 2 diabetes mellitus (5) Alzheimer's dementia Surgical History Patient's Surgical History: Coronary stent Appendectomy Cholecystectomy Current Medications Amlodipine Besylate (Amlodipine Besylate) 10 Mg Tablet, 10 MG PO DAILY, ( Reported) Last Taken: Unknown Dose on 11/09/16 0800 Aspirin (Aspirin) 81 Mg Tab.chew, 81 MG PO DAILY, (Reported) Last Taken: Unknown Dose on 11/09/16 0800 Atenolol (Atenolol) 25 Mg Tablet, 25 MG PO BID, (Reported) Last Taken: Unknown Dose on 11/09/161999 Atorvastatin Calcium (Atorvastatin Calcium) 20 Mg Tablet, 20 MG PO HS, (Reported) Last Taken: Unknown Dose on 11/09/161999 Citalopram Hydrobromide ( Citalopram HBr) 20 Mg Tablet, 20 MG PO DAILY, (Reported) Last Taken: Unknown Dose on 11/09/16 0800 Donepezil HCl (Donepezil HCl) 10 Mg Tablet, 10 MG PO DAILY, (Reported) Last Taken: Unknown Dose on 11/10/16 08 Insulin Glargine,Hum.rec.anlog ( Lantus) 100 Unit/Ml Inj, 6-10 UNIT SQ HS, (Reported) Last Taken: 6 units on 11/09/161999 Losartan Potassium (Losartan Potassium) 100 Mg Tablet, 100 MG PO DAILY, (Reported) Last Taken: Unknown Dose on 11/09/16 08 Multivitamin (Multivitamins) 1 Each Tablet, 1 TAB PO DAILY, (Reported) Last Taken: Unknown Dose on 11/09/16 0800 Allergies Allergies: Coded Allergies: pentazocine (Verified Allergy, Unknown, 11/10/16) Family History Family History: Unobtainable from patient. Vaccines Yes NO OPEN AREAS Social History Smoking Status: Never smoker Does patient use chewing tobac: No Second Hand Exposure: No Substance Use Type: does not use Alcohol Intake: none Advance Directives: No DPOA for Healthcare Only Physical Exam General General: well nourished, well developed, no acute distress Comments Thin Respiratory FOUND non-labored Cardiovascular FOUND pedal pulses intact Capillary Refill: <2 sec Musculoskeletal Comments Left leg shortened and externally rotated Integumentary FOUND dry, FOUND pink, FOUND warm Neurologic FOUND intact to light touch Psychiatric FOUND alert Laboratory Laboratory Tests Test 11/10/16 16:15 11/10/16 16:19 11/10/16 17:14 11/10/16 17:16 Magnesium Level 1.6MG/DL Troponin I < 0.012ng/ml 25-Hydroxy Vitamin D Total Pending 25-Hydroxy Vitamin D2 Pending 25-Hydroxy Vitamin D3 Pending Chemistry Specimen Hemolysis < 15 < 15 White Blood Count 10.1T/MM3 Red Blood Count 4.96M/MM3 Hemoglobin 13.1GM/DL Hematocrit 40.0% Mean Corpuscular Volume 80.6UM3 Mean Corpuscular Hemoglobin 26.4UUG Mean Corpuscular Hemoglobin Concent 32.8GM/DL RDW Standard Deviation 42.6FL Platelet Count 255T/MM3 Mean Platelet Volume 10.7UM3 Immature Granulocyte % (Auto) % Neutrophils (%) (Auto) % Lymphocytes (%) (Auto) % Monocytes (%) (Auto) % Eosinophils (%) (Auto) % Basophils (%) (Auto) % Absolute Immature Granulocyte (auto T/MM3 Absolute Neutrophils (auto) T/MM3 Absolute Lymphocytes (auto) T/MM3 Absolute Monocytes (auto) T/MM3 Absolute Eosinophils (auto) T/MM3 Absolute Basophils (auto) T/MM3 Neutrophils % (Manual) 90.0% Band Neutrophils % 1.0% Lymphocytes % (Manual) 7.0% Monocytes % (Manual) 1.0% Metamyelocytes % 1.0% Absolute Neutrophils (Manual) 9.1T/MM3 Band Neutrophils # 0.1T/MM3 Lymphocytes # (Manual) 0.7T/MM3 Monocytes # (Manual) 0.1T/MM3 Metamyelocytes # 0.1T/MM3 Red Cell Morphology Comment Normal Prothromb Time International Ratio 1.28 Turbidity < 20 Sodium Level 142MEQ/L Potassium Level 3.1MEQ/L Chloride Level 103MEQ/L Carbon Dioxide Level 28MEQ/L Anion Gap 11MEQ/L Blood Urea Nitrogen 19.0MG/DL Creatinine 0.7MG/DL Glomerular Filtration Rate Calc 79 BUN/Creatinine Ratio 27RATIO Glucose Level 205MG/DL Hemoglobin A1c 10.5% Calculated Osmolality 281MOSM/KG Calcium Level 8.4MG/DL Total Bilirubin 1.20MG/DL Icterus Index < 2 Aspartate Amino Transf (AST/SGOT) 18U/L Alanine Aminotransferase (ALT/SGPT) 29U/L Alkaline Phosphatase 148U/L Total Protein 6.8G/DL Albumin 3.6G/DL Globulin 3.2G/DL Albumin/Globulin Ratio 1.1RATIO Prealbumin 17.2MG/DL Vitamin B12 Level Pending Thyroid Stimulating Hormone (TSH) 6.24MIU/L Free Thyroxine Pending Urine Collection Type Leggett indwelling Urine Color Yellow Urine Turbidity Cloudy Urine pH 8.0 Urine Specific [place] 1.015 Urine Protein 1+ Urine Glucose (UA) 2+ Urine Ketones 1+ Urine Blood Trace-intact Urine Nitrite Negative Urine Bilirubin Negative Urine Urobilinogen 0.2EU/DL Urine Leukocyte Esterase 1+ Urine RBC 0-1/HPF Urine WBC 10-20/HPF Urine WBC Clumps Moderate Urine Squamous Epithelial Cells None seen Urine Bacteria 2+ Urine Culture Indicated Cult reflexed &setup Test 11/10/16 22:47 11/11/16 03:36 11/11/16 06:29 Glucometer 223mg/dL 114mg/dL White Blood Count 6.2T/MM3 Red Blood Count 4.45M/MM3 Hemoglobin 11.4GM/DL Hematocrit 36.4% Mean Corpuscular Volume 81.8UM3 Mean Corpuscular Hemoglobin 25.6UUG Mean Corpuscular Hemoglobin Concent 31.3GM/DL RDW Standard Deviation 43.3FL Platelet Count 257T/MM3 Mean Platelet Volume 10.5UM3 Immature Granulocyte % (Auto) 0.2% Neutrophils (%) (Auto) 70.9% Lymphocytes (%) (Auto) 19.9% Monocytes (%) (Auto) 7.1% Eosinophils (%) (Auto) 1.6% Basophils (%) (Auto) 0.3% Absolute Immature Granulocyte (auto 0.01T/MM3 Absolute Neutrophils (auto) 4.4T/MM3 Absolute Lymphocytes (auto) 1.2T/MM3 Absolute Monocytes (auto) 0.4T/MM3 Absolute Eosinophils (auto) 0.1T/MM3 Absolute Basophils (auto) 0.0T/MM3 Turbidity < 20 Sodium Level 140MEQ/L Potassium Level 3.7MEQ/L Chloride Level 106MEQ/L Carbon Dioxide Level 28MEQ/L Anion Gap 6MEQ/L Blood Urea Nitrogen 19.0MG/DL Creatinine 0.7MG/DL Glomerular Filtration Rate Calc 79 BUN/Creatinine Ratio 27RATIO Glucose Level 109MG/DL Calculated Osmolality 272MOSM/KG Calcium Level 8.0MG/DL Icterus Index < 2 Chemistry Specimen Hemolysis < 15 RANGEL BUNCH MD Nov 11, 2016 07:26
--- NOTE | 2016-11-11 08:31 | NUR ---
SHIFT STATUS/SUMMARY Report received at BS in [facility]. All cares assumed. Introduced self to pt et pt grand daughter at BS. Assessment complete. See flowsheet. Pt is Alert to first name and location, confuses otherwise 2/2 alzheimer's. Pt is pleasant and cooperative with cares. PERRL, MAETC/Spont with noted ROM deficit to LLE 2/2 fracture. Pt is sats >92% RA, BLungs CTA with diminished bases. Pt has BSAx4, round SNT abd. Pt infusing LR @75ml/hr to R hand PIV. Leggett to DD. Pt was made NPO p midnoc otherwise swallowed her pills with no complications. Pt in pain at one point in evening, Dilaudid 0.5mg IV given. No complications throughout evening. Pt slept well. Obtained consent from pt daughter this am with witnessing RN. Report given this am in SBAR. All cares resigned.
--- NOTE | 2016-11-11 08:40 | NUR ---
TO OR PT TRANSFERRED TO OR VIA BED AT THIS TIME BY STAFF. FAMILY PRESENT UPON TRANSFER. VITAL SIGNS STABLE ON ROOM AIR. INFORMED CONSENT OBTAINED PRIOR TO TRANSFER. PERSONAL BELONGINGS REMAIN IN ROOM. WILL CONTINUE TO MONITOR. Addendum: 11/11/16 at 1030 by RUY PROCTOR RN PT TO OR AT 0910
[2016-11-11] MEDS: POLYETHYL.GLYCOL 3350 PACKET 17gm PO SCH (08:47)
[2016-11-11] MEDS: MULTIVITAMIN + MINERAL TABLET PO SCH (08:47)
[2016-11-11] MEDS: SENNA + DOCUSATE TAB PO SCH ×2 (08:47→19:58)
[2016-11-11] MEDS: ATENOLOL 25 MG TABLET PO SCH ×3 (08:47→19:57)
[2016-11-11] MEDS ORDERED: TRANEXAMIC ACID 1,000 MG in NORMAL SALINE 100 ML TOP SCH (10:00)
[2016-11-11] MEDS ORDERED: EPHEDRINE SULFATE 50mg/ml INJECTION ONE (10:02)
[2016-11-11] MEDS ORDERED: SUGAMMADEX 200 MG/2 ML INJECTION IV ONE (10:41)
--- NOTE | 2016-11-11 10:59 | PDOPERATE ---
Operative Report Date of Operation 11/11/16 Side: Left Preoperative Diagnosis: displaced subcapital femoral hip fx Postoperative Diagnosis Same as preoperative diagnosis. Operation/Procedure: total hip arthroplasty (left) Surgeon Adam Perry MD Wallet Assembler HERMILO Bermudez Complications None. Anesthesia Plan: GETA Estimated Blood Loss See Anesthesia Record. Fluids Please See Anesthesia Record. Description of Operation Ms. Lucia and her left hip were identified and marked in the the preoperative holding area. She was then brought back to the operating suite and proper anesthesia was administered. She was then positioned lateral on the operating table. The left lower extremity was then prepped and draped in my normal sterile fashion. Timeout was performed with all operating room personnel. Posterior approach was utilized. Approximately 11 cm incision was made sharp dissection was carried through subcutaneous tissue down to the muscle fascia which was then split in line with skin incision. Charnley retractor was placed. The short external rotators were identified and detached and the capsulotomy performed. Femoral neck osteotomy was performed and the neck fragment as well as head fragment were then removed and measured on the back table. We sized the acetabulum to 47. The proximal femur was then prepared with a cookie cutter followed by reaming and broaching to a size 5. I then cemented a size 5 units when femoral component at the proper anteversion. We then trialed with a standard 47 head. This gave excellent stability and good leg length. After thorough irrigation the final standard 47 head was placed and final reduction performed. Betadine solution was used for 3 minutes and then fully irrigated out. 1 g of TXA was also placed and the hip joint allowed to sit 5 minutes and then irrigated out. The capsulotomy was repaired with #1 Ethibond. The muscle fascia was then repaired with #1 Vicryl all by 2-0 Vicryl in subcutaneous tissue followed by running 4-0 Monocryl. Dermabond was then used in a sterile dressing. The drapes removed and she is placed back into a supine position and taken to the recovery room in the care of anesthesia after she had woken from general anesthesia. She tolerated procedure well there were no complications. RANGEL PERRY MD Nov 11, 2016 10:59
[2016-11-11] MEDS ORDERED: MILK OF MAGNESIA 30 ML SUSP PO PRN (11:00)
[2016-11-11] MEDS ORDERED: FENTANYL 100mcg/2ml INJECTION IV PRN (11:15)
[2016-11-11] MEDS ORDERED: ONDANSETRON 4mg/2ml INJECTION IV PRN (11:15)
--- NOTE | 2016-11-11 11:26 | ANESPO ---
Post-Op Note Date 11/11/16 Time: 11:25 Status Pt Participated in Evaluation: Pt participated in person Vital Signs Date Time Temp Pulse Resp B/P Pulse Ox O2 Delivery O2 Flow Rate FiO2 11/11/16 11:10 74 22 160/74 95 Room Air 11/11/16 10:59 98.4 6.00 Respiratory Function: Airway patent, Regular respirations Cardiovascular Function: Regular pulse Mental Status: Alert/oriented (alert and follows commands) Pain Level Intensity: 0 Hydration: IV infusing Complications during Recovery None apparent Follow-Up Instructions Instructions Per Surgeon ADDI HORVATH CRNA Nov 11, 2016 11:26
--- NOTE | 2016-11-11 11:54 | NUR ---
RETURN TO UNIT RETURNED TO ROOM 111 VIA HOSPITAL BED POST PROCEDURE. O2 RA. V/S STABLE. IVF INFUSING. TEIXEIRA TO DEPENDENT DRAINAGE. ICE PACK TO LEFT HIP. DRESSING CLEAN,DRY, AND INTACT. SCD TO BILATERAL LOWER EXTREMITIES. DENIES CHEST PAIN, SHORTNESS OF BREATH OR PAIN TO THE LEFT HIP. CALL LIGHT WITHIN REACH, SIDE RAILS UP X2, BED IN LOWEST POSITION, BED ALARM ACTIVATED. FAMILY AT BEDSIDE.
[2016-11-11] MEDS ORDERED: NOZIN NASAL SWAB NS ONE (13:00)
[2016-11-11] MEDS: INSULIN LISPRO 100 UNIT/ML SQ PRN ×3 (13:05→19:57)
--- NOTE | 2016-11-11 13:54 | DI ---
Indication: ITS.REASON: hip fx PROCEDURE: CHEST 1 VIEW: Encounter: Initial Comparison: January 12, 2015 Findings: The lungs are stable in appearance without new focal airspace consolidation. There is no pleural effusion or pneumothorax. The heart size, pulmonary vascularity and mediastinal contours are unchanged. Tortuous thoracic aorta. IMPRESSION: Stable appearance of the chest without acute cardiopulmonary disease. .
--- NOTE | 2016-11-11 13:55 | DI ---
Indication: ITS.REASON: fall, pain PROCEDURE: HIP LEFT 2 VIEW: Encounter: Initial Comparison: None Findings: Mildly displaced fracture of the subcapital left femoral neck with foreshortening and varus angulation. Bony demineralization. No additional acute fracture or dislocation seen. Impression: Closed posttraumatic left femoral neck fracture. .
--- NOTE | 2016-11-11 14:11 | PNPDOC ---
RASHAWN HERNANDEZ V REAL ESTATE VALUER 11/11/16 1402: Subjective Date DATE: 11/11/16 TIME: 13:59 Subjective Radha is seen this afternoon postoperatively. She is alert and pleasant during examination. She ask why she can not go home today since surgery is over and she is feeling "great". We discussed post-op recovery. Denies feeling short of breath or chest pain. No current left hip pain, Ice pack intact. Tolerated small amount of liquid diet for lunch. Objective Vital Signs Vital signs Vital Signs Date Time Temp Pulse Resp B/P Pulse Ox O2 Delivery O2 Flow Rate FiO2 11/11/16 13:48 Nasal Cannula 2.00 11/11/16 13:25 62 16 155/68 94 11/11/16 12:10 98.1 Height (Feet): 5 Height (Inches): 3.00 Weight (Kilograms): 61.500 General General Appearance: Alert, Orientated x 2, Cooperative, No Acute Distress Eyes (Brief) Eyes: FOUND: EOMI ENMT (Brief) ENMT: FOUND: mucosa moist, normal dentition, NOT FOUND: pharnyx erythema Neck (Brief) Neck: FOUND: midline, NOT FOUND: adenopathy, carotid bruits, tracheal deviation Respiratory (Brief) Respiratory: FOUND: clear all naqvi, equal bilaterally, NOT FOUND: wheezes Cardiovascular (Brief) Cardiac: FOUND: regular rate, regular rhythm, NOT FOUND: murmur, pedal edema Capillary Refill: <2 sec Abdomen (Brief) Abdominal: FOUND: BS normo active x4, soft, NOT FOUND: distended, tender Lymphatic (Brief) Lymphatic: NOT FOUND: adenopathy Musculoskeletal (Brief) Musculoskeletal: NOT FOUND: tenderness Integumentary (Brief) Integumentary: FOUND: dry, pink, warm Neurologic (Brief) Neurological: FOUND: cranial 2-12 intact Psychiatric (Brief) Psychiatric: FOUND: alert, attentive, normal affect, oriented Laboratory Laboratory Laboratory Tests 11/10/16 16:19 11/11/16 03:36 Laboratory Tests 11/10/16 16:19 11/11/16 03:36 Microbiology Microbiology Microbiology Date/Time Source Procedure Growth Status 11/10/16 17:35 Urine, Leggett Indwelling Urine Culture - Preliminary Gram Negative Wayne Resulted Assessment & Plan Problems: (1) Femoral neck fracture Status: Acute Qualifiers: Encounter type: initial encounter Fracture type: closed Laterality: left Qualified Codes: S72.002A - Fracture of unspecified part of neck of left femur, initial encounter for closed fracture (2) TIA (transient ischemic attack) Status: Chronic (3) CAD (coronary artery disease) Status: Chronic (4) HTN (hypertension) Status: Chronic (5) Type 2 diabetes mellitus Status: Chronic (6) Alzheimer's dementia Status: Chronic (7) Abnormal EKG Assessment & Plan: Sinus bradycardia, first-degree block, left atrial enlargement, moderate ST depression. Patient asymptomatic (8) Elevated TSH Status: Acute (9) Hypokalemia Status: Acute (10) UTI (urinary tract infection) Status: Acute Plan/Intensity of Service 11/11/16 Tolerated surgery well this morning. Monitor Accu-Cheks, continue Lantus 6 units at HS along with sliding scale Humalog. On admission, patient's diabetes was uncontrolled. Given that her A1c was 10.5. Continue on IV Rocephin daily for antimicrobial coverage of acute urinary tract infection. Urine culture luminary indicates gram-negative wayne. Will monitor for final report. May switch to oral antibiotic at that time. Continue scheduled senna plus, and MiraLAX for postoperative bowel motivation. Lovenox subcutaneous daily for postoperative prophylaxis. Will confirm with orthopedic team that patient will need this for 30 days postoperatively. Did confirm with patient's granddaughter that [facility] She often sees any of the Nurse Practitioners. Will encourage physical therapy tomorrow to begin postoperative strengthening Metabolic bone disease consultation has been placed Have speech evaluate for dysphasia. Given patient's history of dementia Will recheck CBC tomorrow morning to follow blood counts Code Status Full Code Hospital Course Summary Disclaimer The hospital course summary below is not to be considered part of the above Progress Note. Hospital Course Summary 11/10/16 Admit, inpatient status. Dr. Mathews attending. PCP: Dr. Tamez Code status: Granddaughter believes that patient would want DNR, but no orders have been signed. Will leave full code for the time being. Consult CM to help with advanced directives and to assist with discharge planning. Granddaughter was advised that she will most likely need to go to SNF or rehab after hospital stay. Dx: Left femoral neck fracture. Consult Dr. Perry. He will plan on sx tomorrow am. OK with 1-time dose of Lovenox now. Need to medically clear - labs have been ordered after arrival to the surgical unit - CBC, CMP, INR for preop clearance; type and screen because of fracture and blood loss; check TSH, vitamin B12, and prealbumin with hx of dementia and decreased appetite. Check A1c d/t DM. Insert Leggett catheter for comfort and check UA. Check EKG - mild bradycardia noted . Monitor blood glucose QID. Cont. Lantus HS. Hold ASA, amlodipine, and losartan to minimize chance of periop. hypotension. Continue BB for now. Hx of dementia - will ask ST to evaluate her given risk for dysphagia. She's also at risk of acute delirium. Will have Zyprexa Zydis available if needed. 11/11/16 Tolerated surgery well this morning. Monitor Accu-Cheks, continue Lantus 6 units at HS along with sliding scale Humalog. On admission, patient's diabetes was uncontrolled. Given that her A1c was 10.5. Continue on IV Rocephin daily for antimicrobial coverage of acute urinary tract infection. Urine culture luminary indicates gram-negative wayne. Will monitor for final report. May switch to oral antibiotic at that time. Continue scheduled senna plus, and MiraLAX for postoperative bowel motivation. Lovenox subcutaneous daily for postoperative prophylaxis. Will confirm with orthopedic team that patient will need this for 30 days postoperatively. Did confirm with patient's granddaughter that she is a patient of [facility]. She often sees any of the Nurse Practitioners. Will encourage physical therapy tomorrow to begin postoperative strengthening Metabolic bone disease consultation has been placed Have speech evaluate for dysphasia. Given patient's history of dementia Will recheck CBC tomorrow morning to follow blood counts KATIE MATHEWS MD 11/11/16 192: Assessment & Plan Assessment 11/11/2016-I reviewed this chart, the patient history, and the REAL ESTATE VALUER's/PA's documented findings as above. We discussed and formulated the assessment and plan as above with the additions below.-Dr. Mathews The patient was seen today accompanied by her granddaughter. The patient is postop and doing very well. Vital signs are stable and she is on room air. She denies any pain currently. She is drinking fluids well and is being advanced to a regular diet this evening. She has no complaints. On exam she has dementia and is very pleasant. Chest is clear to auscultation. Cardiovascular reveals a regular rate and rhythm. Abdomen is soft and nontender. Extremities are free of edema. Continue with current care plan Consider restarting aspirin tomorrow for stroke prevention if okay orthopedics and if hemoglobin has not dropped significantly. RASHAWN HERNANDEZ APRN Nov 11, 2016 14:02 KATIE MATHEWS MD Nov 11, 2016 19:21
--- NOTE | 2016-11-11 14:30 | DI ---
Indication: ITS.REASON: Left hip janet arthroplasty PROCEDURE: PELVIS 1-2 VIEW DEDICATED PELV: Encounter: Initial Comparison: Left hip radiographs dated November 10, 2016 Findings: Postoperative changes of left femoral head replacement are seen. There is expected postoperative subcutaneous gas. No evidence of hardware failure or acute fracture. No retained radiopaque surgical instruments or sponges seen. Severe degenerative change in the contralateral right hip. Bony demineralization. Impression: New left femoral head prosthesis without evidence of immediate complication. .
[2016-11-11] MEDS ORDERED: NS 500 ML IV PRN (17:00)
[2016-11-11] MEDS ORDERED: INFLUENZA VAC High Dose 2016-17 (Fluzone HD*)(>=65yo) 0.5ml IM ONE (17:00)
[2016-11-11] MEDS ORDERED: PNEUMOCOCCAL 13 VACCINE 0.5 ML SYRINGE IM ONE (17:00)
[2016-11-11] MEDS ORDERED: CEFAZOLIN 1 G in NORMAL SALINE 100 ML IV SCH (17:00)
[2016-11-11] MEDS ORDERED: PNEUMOCOCCAL VAC. ADMIN. CHARGE INJ ONE (17:30)
[2016-11-11] MEDS ORDERED: INFLUENZA VAC. ADMIN CHARGE INJ ONE (17:31)
[2016-11-11] MEDS ORDERED: CEFTRIAXONE 1 G in NORMAL SALINE 100 ML IV SCH (19:00)
--- NOTE | 2016-11-11 19:31 | NUR ---
SUMMARY PT ORIENTED TO SELF/PERSON ONLY THIS SHIFT. VITAL SIGNS STABLE ON ROOM AIR POST OP. PT'S GRAND DAUGHTER PRESENT IN ROOM THROUGHOUT THE SHIFT AND ASSISTED WITH FEEDING. PT TOLERATED REGULAR FOOD FOR DINNER. PT TURNED Q2H IN THE BED AND HEELS REMAINED ELEVATED OFF OF BED. BED ALARM ON. SIDE RAILS UP X3. ICE PACK REMAINS TO LEFT HIP. DRESSING C/D/I TO LEFT HIP. SCD'S ON BILATERALLY. PT DENIED N/V, CP AND SOA. THIS RN OBTAINED ORDER FOR NORCO 7.5 Q4H PO PRN FOR PAIN THIS AFTERNOON AND ADMINISTERED 1 TAB DUE TO PT HOLLERING OUT AND GRIMACING ON TURNS. THIS RN UTILIZED THE FLACC PAIN SCALE FOR PAIN ASSESSMENT. WILL CONTINUE TO MONITOR CLOSELY.
[2016-11-11] MEDS: ENOXAPARIN 40 MG/0.4 ML INJECTION SQ SCH (19:57)
[2016-11-11] MEDS: ATORVASTATIN 20 MG TABLET PO SCH (19:57)
[2016-11-11] MEDS: DONEPEZIL 10 MG TABLET PO SCH (21:58)
[2016-11-11] MEDS: INSULIN GLARGINE 100 UNIT/ML SQ SCH (21:59)
[2016-11-12] VITALS (12 sets, daily range): BP systolic 116–153; BP diastolic 62–70; PULSE 60–80; RESP 16–20; TEMP 96.7–99.6; O2SAT 87–95
[2016-11-12] MEDS: NOZIN NASAL SWAB NS SCH ×3 (01:15→17:23)
--- NOTE | 2016-11-12 02:12 | NUR ---
ICE PACK PT AND GRANDDAUGHTER INFORMED OF THE NEED FOR THE ICE PACK TO REDUCE SWELLING. PT STATES THAT IT IS TOO COLD AND REFUSES TO HAVE IT IN PLACE. INFORMED GRANDDAUGHTER IF SHE CHANGES HER MIND TO PLEASE ALERT THIS RN SO WE CAN MAKE A FRESH ONE AND PUT IT BACK IN PLACE. WILL CONTINUE TO MONITOR.
--- NOTE | 2016-11-12 05:18 | NUR ---
SHIFT SUMMARY PT HAS BEEN ALERT TO PERSON, VITAL SIGNS STABLE ON ROOM AIR,DENIES C/P,N/V AND SOA. GRANDDAUGHTER HAS BEEN AT THE BEDSIDE ALL EVENING. PT HAS REFUSED TURNING MULTIPLE TIMES ON THIS SHIFT, CRYING OUT WHEN TURNING DOES OCCUR. PRN PAIN MEDICATION GIVEN ON REQUEST OF GRANDDAUGHTER AND UTILIZING FLACC SCALE. WILL CONTINUE TO MONITOR.
[2016-11-12 05:28] LABS: BASOPHILS % (AUTO) 0.4 % (0-2); EOSINOPHILS # (AUTO) 0.1 T/MM3 (0-0.5); EOSINOPHILS % (AUTO) 0.7 % (0-4); HCT - HEMATOCRIT 32.3 % (36-46); IMMATURE GRANULOCYTE # (AUTO) 0.01 T/MM3 (0.00-0.03); IMMATURE GRANULOCYTE % (AUTO) 0.1 % (0.0-0.5); LYMPHOCYTES # (AUTO) 0.8 T/MM3 (1-4.8); LYMPHOCYTES % (AUTO) 10.8 % (23-45); MEAN CORPUSCULAR HGB 25.9 UUG (26-34); MEAN CORPUSCULAR VOLUME 83.7 UM3 (80-100); MEAN PLATELET VOLUME 11.8 UM3 (9.4-12.4); MONOCYTES # (AUTO) 0.5 T/MM3 (0-0.8); MONOCYTES % (AUTO) 7.4 % (0-9.0); NEUTROPHILS #(AUTO)-ABSOLUTE 5.9 T/MM3 (1.8-7.7); NEUTROPHILS % (AUTO) 80.6 % (33-66); RED BLOOD COUNT 3.86 M/MM3 (4.00-5.20); WBC - WHITE BLOOD COUNT 7.3 T/MM3 (4.5-11.0)
[2016-11-12 05:32] LABS: ANION GAP 7 MEQ/L (5-15); BUN/CREATININE RATIO 26 RATIO (6-26); CALCIUM 7.8 MG/DL (8.4-10.2); CHLORIDE 104 MEQ/L (98-107); CO2 - CARBON DIOXIDE 28 MEQ/L (22-30); CREATININE 0.7 MG/DL (0.7-1.2); GLOMERULAR FILTRATION RATE 79; GLUCOSE 180 MG/DL (65-110); POTASSIUM 3.3 MEQ/L (3.6-5); SODIUM 139 MEQ/L (134-144)
[2016-11-12] MEDS ORDERED: TRANEXAMIC ACID 1000 MG/10 ML TOP ONE (06:00)
[2016-11-12] MEDS: LEVOTHYROXINE 25 MCG TABLET PO SCH (06:04)
[2016-11-12] MEDS: INSULIN LISPRO 100 UNIT/ML SQ PRN ×3 (06:13→22:03)
[2016-11-12] MEDS ORDERED: POTASSIUM CHLORIDE 20 MEQ TABLET PO ONE (08:00)
--- NOTE | 2016-11-12 08:06 | PDORTHOPN ---
Subjective Date DATE: 11/12/16 TIME: 08:01 Subjective Radha didn't sleep much early in the night but after some pain meds she did better. No specific complaints. Objective Vital Signs Vital signs Vital Signs 11/11/16 11/12/16 11/12/16 11/12/16 23:36 00:36 01:16 01:22 Temp 99.6 Pulse 68 Resp 18 18 18 B/P 132/67 Pulse Ox 88 93 O2 Delivery Room Air Nasal Cannula O2 Flow Rate 1.00 11/12/16 03:31 Temp 98.8 Pulse 68 Resp 18 B/P 153/69 Pulse Ox 95 O2 Delivery Nasal Cannula O2 Flow Rate 1.00 Height (Feet): 5 Height (Inches): 3.00 Weight (Kilograms): 61.500 General General Appearance: Alert Respiratory (Brief) Respiratory Brief: FOUND: non-labored (Has Oxygen per NC this am.) Cardiovascular (Brief) Cardiac: FOUND: calf soft, nontender, pedal pulses intact Surgical Site Incision: FOUND: Mepilex dressing intact, no drainage Integumentary (Brief) Integumentary Brief: FOUND dry, FOUND pink, FOUND warm Neurologic (Brief) Neurological Brief: FOUND: extremities w/o deficits Psychiatric (Brief) Psychiatric Brief: FOUND: alert, no acute distress Laboratory Laboratory Laboratory Tests 11/10/16 16:19 11/11/16 03:36 11/12/16 04:16 Laboratory Tests 11/10/16 16:19 11/11/16 03:36 11/12/16 04:16 Microbiology Microbiology Microbiology Date/Time Source Procedure Growth Status 11/10/16 17:35 Urine, Leggett Indwelling Urine Culture - Final Proteus Mirabilis Complete Assessment & Plan Problems: (1) Femoral neck fracture Status: Acute Qualifiers: Encounter type: initial encounter Fracture type: closed Laterality: left Qualified Codes: S72.002A - Fracture of unspecified part of neck of left femur, initial encounter for closed fracture Assessment & Plan: Cemented left hip hemiarthroplasty by Dr Perry 11/11/16. Lovenox X [address] Mobilize with PT / OT. F/U in 3 weeks. Hospital Course Summary Disclaimer The visit summary below is not to be considered part of the above Progress Note. Hospital Course 11/10/16 Admit, inpatient status. Dr. Mathews attending. PCP: Dr. Tamez Code status: Granddaughter believes that patient would want DNR, but no orders have been signed. Will leave full code for the time being. Consult CM to help with advanced directives and to assist with discharge planning. Granddaughter was advised that she will most likely need to go to SNF or rehab after hospital stay. Dx: Left femoral neck fracture. Consult Dr. Perry. He will plan on sx tomorrow am. OK with 1-time dose of Lovenox now. Need to medically clear - labs have been ordered after arrival to the surgical unit - CBC, CMP, INR for preop clearance; type and screen because of fracture and blood loss; check TSH, vitamin B12, and prealbumin with hx of dementia and decreased appetite. Check A1c d/t DM. Insert Leggett catheter for comfort and check UA. Check EKG - mild bradycardia noted . Monitor blood glucose QID. Cont. Lantus HS. Hold ASA, amlodipine, and losartan to minimize chance of periop. hypotension. Continue BB for now. Hx of dementia - will ask ST to evaluate her given risk for dysphagia. She's also at risk of acute delirium. Will have Zyprexa Zydis available if needed. 11/11/16 Tolerated surgery well this morning. Monitor Accu-Cheks, continue Lantus 6 units at HS along with sliding scale Humalog. On admission, patient's diabetes was uncontrolled. Given that her A1c was 10.5. Continue on IV Rocephin daily for antimicrobial coverage of acute urinary tract infection. Urine culture luminary indicates gram-negative jaqueline. Will monitor for final report. May switch to oral antibiotic at that time. Continue scheduled senna plus, and MiraLAX for postoperative bowel motivation. Lovenox subcutaneous daily for postoperative prophylaxis. Will confirm with orthopedic team that patient will need this for 30 days postoperatively. Did confirm with patient's granddaughter that she [facility]. She often sees any of the Nurse Practitioners. Will encourage physical therapy tomorrow to begin postoperative strengthening Metabolic bone disease consultation has been placed Have speech evaluate for dysphasia. Given patient's history of dementia Will recheck CBC tomorrow morning to follow blood counts MADDISON CASTANEDA Nov 12, 2016 08:05
[2016-11-12] MEDS: POLYETHYL.GLYCOL 3350 PACKET 17gm PO SCH (08:59)
[2016-11-12] MEDS: ATENOLOL 25 MG TABLET PO SCH ×2 (08:59→22:02)
[2016-11-12] MEDS: SENNA + DOCUSATE TAB PO SCH ×2 (08:59→22:02)
[2016-11-12] MEDS: CYANOCOBALAMIN (B-12) 500mcg TABLET PO SCH (09:00)
[2016-11-12] MEDS: CEPHALEXIN 500 MG CAPSULE PO SCH ×2 (09:00→22:02)
[2016-11-12] MEDS: MULTIVITAMIN + MINERAL TABLET PO SCH (09:00)
--- NOTE | 2016-11-12 09:37 | STEVAL ---
Eval Subjective and History Date/Time of Eval DATE: 11/12/16 TIME: 09:26 Medical Diagnosis femoral neck fx with repair, rule out dysphagia Treatment Order: Assessment Orientations: Alert, Cooperative Primary Complaint: fall with hip fx, difficulty swallowing Pain: Yes (hip pain with movement, nursing aware) Date of Onset of Primary Com: 11/10/16, repair 11/11 Prior History of This Problem: No Patient's Goals: Return home Significant Past Medical Hx: Pt admitted 11/10/16 secondary to fall with femoral neck fx. PMH: TIA, CAD, HTN, type 2 diabetes mellitis, Alzheimre's dementia, UTI, significant gradual weight loss over last 2 years. Medical History Form Reviewed: Yes Residence Type: Private home/apartment Lives With: With Family Caregiver Status: Yes (granddaughter) Prior Functional Status: unknown diet, gradual weight loss Current Functional Status: confusion with minimal risk for aspiration Education Subject: Treatment Plan Instruction Understanding Demo: Pt. verbalizes understand Education Comment TRANSITIONAL LIVING SPECIALIST educated patient on reasoning for evaluation. Patient was agreeable to evaluation. Subjective and History Comment: Pt was alert and cooperative. She was disoriented to place and reason for hospitalization. Dysphagia Evaluation Evaluation Location: Chair Evaluation Angle: 90 Tongue Elevation: Minimal Impairment Tongue Lateralization: No Impairment (WFL) Tongue Protrusion: No Impairment (WFL) Tongue Retraction: No Impairment (WFL) Tongue Extension Midline: No Impairment (WFL) Labial Approximation: No Impairment (WFL) Intraoral Air Pressure: Minimal Impairment (minimal) Volitional Cough: Minimal Impairment Palatal Elevation: No Impairment (WFL) Larynx Elevation During Swallo: Minimal Impairment Saliva Control: No Impairment (WFL) Dentition: Natural Oral Peripheral Exam Comment: Mild generalized weakness. Mildy reduced laryngeal elevation. Lip Seal: Adequate-liquid, Adequate-pudding, Adequate-solid Lingual Manipulation: Adequate-liquid, Adequate-pudding, Adequate-solid Chewing: Inadequate-solid (minimal) Oral cavity clear post swallow: Adequate-liquid, Adequate-pudding, Adequate- solid Swallow initiated w/o delay: Adequate-liquid, Adequate-pudding, Inadequate- solid (minimal) Multiple swallows not needed: Adequate-liquid, Adequate-pudding, Adequate-solid Voice clear&dry post swallow: Adequate-liquid, Adequate-pudding, Adequate-solid No cough/throat clear: Adequate-liquid, Adequate-pudding, Adequate-solid Assessment/Plan of Care Speech Therapy Impressions: Pt demonstrated functional oral range of motion. Palatal and laryngeal elevation were mildly reduced. Pt drank sips of thin and nectar thick water with prompt swallow and no s/s of aspiration. She ate pudding and thai cracker with no significant s/s of aspiration. TRANSITIONAL LIVING SPECIALIST recommended dysphagia with chopped meat but pt declined chopped meat. evaluation and recommendation. ST Treatment Plan: Evaluation Only ST Treatment Plan Frequency: N/A Treatment Plan Duration: N/A Plan of Care Comment Evaluation with recommendations for regular diabetic diet, regular liquids and swallow precautions. Recommended Diet: regular diabetic diet, regular liquids Date of Visit 11/12/16 Time Visit Began: 09:10 Time Visit Ended: 09:30 ST Assess/Plan of Care: ST Treatment Charge: Swallow Eval Minutes of Individual Therapy: 20 TORRI EAGLE MS CCC-TRANSITIONAL LIVING SPECIALIST Nov 12, 2016 09:29
--- NOTE | 2016-11-12 10:01 | NUR ---
CM CM IN TO VISIT WITH PT. HER CAREGIVER/GRADDAUGHTER, CHRISTOPHER, IS PRESENT. CHRISTOPHER'S GOAL IS TO CARE FOR PT AT HOME. HHS FOR THERAPY ARE DISCUSSED. IF PT IS NOT DOING WELL ENOUGH TO BE CARED FOR AT HOME, CHRISTOPHER WOULD LIKE SNF AT [place]. CHRISTOPHER IS GIVEN W CONTACT INFORMATION TO [facility] AND [facility]OOL [facility]. CM WILL CHECK ON COST OF BED ALARM FOR HOME USE. THEY ARE GIVEN CM CONTACT INFORMATION AND INFORMATION ABOUT [facility] DIRECT[employer]ES. Addendum: 11/12/16 at 1002 by LUCA ANDRADE RN Amended: Links added.
--- NOTE | 2016-11-12 10:58 | NUR ---
DM screen A1c: 6.5; Diet: [id number]; home DM meds: Lantus 6-10 units; RD spoke with granddaughter, Brianna, who was beside her grandmother who was sitting in the armchair. Brianna states that she prepares grandmother's meals, and she eats 3 small meals daily, and sometimes snacks. Brianna states that several times GM was brought to ER with hypoglycemia. She was instructed to use less Lantus if Bg was low. RD reviewed hypoglycemia treatment, with juice or gel, which Brianna has in her home. Rd recommended FBS testing, and if above goal, to make appointment with PCP and take log along. Gave f/u info, and DSMT brochures.
--- NOTE | 2016-11-12 11:41 | STEVAL ---
Eval Subjective and History Date/Time of Eval DATE: 11/12/16 TIME: 11:30 Medical Diagnosis femoral neck fx w/repair, rule out dysphagia Treatment Order: Assessment Orientations: Person (recognized family member), Alert (confused), Cooperative Primary Complaint: hip fx, possible dysphagia Pain: No Date of Onset of Primary Com: 11/10/16 Prior History of This Problem: No Patient's Goals: Pt unable to express. Granddaughter planned to take her home with her. Significant Past Medical Hx: Pt admitted 11/10/16 seconary to fall with femoral neck fx. PMH: TIA, CAD,HTN, type 2 diabetes melitis, Alzheimer's Dementia, UTI. Granddaughter reported that she was on regular diabetic diet with chopped meat and regular liquids. Medical History Form Reviewed: Yes Residence Type: Private home/apartment Lives With: With Family Caregiver Status: Yes (granddaughter is primary caregiver) Prior Functional Status: Pt was on modified diet prior to this hospitalization. Current Functional Status: Increased risk of aspiration due to medical status. Education Subject: Diet, Treatment Plan Person(s) Educated: Family/DPOA Education Comment FIELD MARKETING COORDINATOR educated patient and family on reasoning for evaluation. Family verbalized understanding. Patient was agreeable to evaluation. Subjective and History Comment: Pt was alert and cooperative but confused. Dysphagia Evaluation Evaluation Location: Chair Evaluation Angle: 90 Oral Peripheral Exam-facial: Facial Symmetry: Generalized Tongue Elevation: Minimal Impairment Tongue Lateralization: Unable to Elicit Tongue Protrusion: Minimal Impairment Tongue Retraction: No Impairment (WFL) Tongue Extension Midline: No Impairment (WFL) Labial Approximation: No Impairment (WFL) Intraoral Air Pressure: Unable to Elicit Palatal Elevation: Minimal Impairment Larynx Elevation During Swallo: Minimal Impairment Saliva Control: No Impairment (WFL) Dentition: Natural Oral Peripheral Exam Comment: No dentures or teeth on bottom, partial on top. Lip Seal: Adequate-liquid, Adequate-pudding, Adequate-solid Lingual Manipulation: Adequate-liquid, Adequate-pudding, Inadequate-solid (mild ) Chewing: Inadequate-solid (mild, no bottom teeth) Oral cavity clear post swallow: Adequate-liquid, Adequate-pudding, Inadequate- solid (mild) Swallow initiated w/o delay: Adequate-liquid, Adequate-pudding, Inadequate- solid (mild) Multiple swallows not needed: Adequate-liquid, Adequate-pudding, Adequate-solid Voice clear&dry post swallow: Adequate-liquid, Adequate-pudding, Adequate-solid No cough/throat clear: Adequate-liquid, Adequate-pudding, Adequate-solid Assessment/Plan of Care Speech Therapy Impressions: Pt had difficulty imitating or following directions. She drank thin iced tea from a cup with prompt swallow and dry voicing after swallow. Pudding tolerated well. Pt ate small cracker with soft cheese spread on it. Mastication was reduced due to dental status. Mild oral delay and residue. Pt cleared oral cavity independently. FIELD MARKETING COORDINATOR discussed diet options with pt and her DPOA, granddaughter. Recommendation was soft diet/chopped meat and reguar liquids by cup. evaluation with recommendations ST Treatment Plan: Evaluation Only ST Treatment Plan Frequency: N/A Treatment Plan Duration: N/A Plan of Care Comment evaluation only Recommended Diet: Dysphagia soft diet/chopped meat and regular liquids by cup No straws Date of Visit 11/12/16 Time Visit Began: 11:05 Time Visit Ended: 11:30 ST Assess/Plan of Care: ST Treatment Charge: Swallow Eval Minutes of Individual Therapy: 25 TORRI EAGLE MS CCC-FIELD MARKETING COORDINATOR Nov 12, 2016 11:33
--- NOTE | 2016-11-12 12:35 | PNPDOC ---
DANAY MCCONNELL Mitchell SYNTHETIC CLOTH BINDING CUTTER 11/12/16 1217: Subjective Date DATE: 11/12/16 TIME: 12:13 Subjective Radha was sitting in her bedside chair. She was alert and oriented to self, in no acute distress. Her granddaughter was in the room, but was in the middle of an important phone call. Radha indicated she was feeling good, but then asked a couple of questions that I couldn't understand. I asked for her to repeat her questions, but she wasn't able to. Nursing staff stated that she's doing well, and has been up on her feet today. Objective Vital Signs Vital signs Vital Signs Date Time Temp Pulse Resp B/P Pulse Ox O2 Delivery O2 Flow Rate FiO2 11/12/16 08:21 71 18 11/12/16 08:18 96.7 151/66 93 Room Air 1.00 Height (Feet): 5 Height (Inches): 3.00 Weight (Kilograms): 61.500 General General Appearance: Alert, Orientated x 1, Well Nourished, Well Developed, No Acute Distress Eyes (Brief) Eyes: FOUND: PERRL, NOT FOUND: scleral icterus ENMT (Brief) ENMT: FOUND: mucosa moist, NOT FOUND: pharnyx erythema Respiratory (Brief) Respiratory: FOUND: clear all naqvi, equal bilaterally Cardiovascular (Brief) Cardiac: FOUND: regular rate, regular rhythm Abdomen (Brief) Abdominal: FOUND: BS normo active x4, soft, NOT FOUND: distended, tender Extremities (Brief) Extremity : Side: Bilateral Extremity Finding: NOT FOUND: edema Musculoskeletal (Brief) Musculoskeletal: NOT FOUND: tenderness (calves soft nttp) Integumentary (Brief) Integumentary: FOUND: dry, pink, warm Psychiatric (Brief) Psychiatric: FOUND: alert, attentive, normal affect, oriented (x1) Laboratory Laboratory Laboratory Tests 11/10/16 16:19 11/11/16 03:36 11/12/16 04:16 Laboratory Tests 11/10/16 16:19 11/11/16 03:36 11/12/16 04:16 Microbiology Microbiology Microbiology Date/Time Source Procedure Growth Status 11/10/16 17:35 Urine, Leggett Indwelling Urine Culture - Final Proteus Mirabilis Complete Assessment & Plan Problems: (1) UTI (urinary tract infection) Status: Acute Assessment & Plan: MICROBIOLOGY URINE CULTURE. Final 11/12/16-06 Organism 1 PROTEUS MIRABILIS COLONY COUNT >100,000 CFU/ml PROMIR INTERP KALA ------ --------- AMOX/CLAV ACID S <=2 AMPICILLIN S <=2 CEFAZOLIN S <=4 CEFEPIME S <=1 CEFTAZIDIME S <=1 CEFTRIAXONE S <=1 CIPROFLOXACIN S <=0.25 ERTAPENEM S <=0.5 GENTAMICIN S <=1 LEVOFLOXACIN S <=0.12 NITROFURANTOIN R 128 TOBRAMYCIN S <=1 TRIMETH/SULFA S <=20 PIPERACILL/TAZO S <=4 (2) Hypokalemia Status: Acute Assessment & Plan: POA (3) Femoral neck fracture Status: Acute Qualifiers: Encounter type: initial encounter Fracture type: closed Laterality: left Qualified Codes: S72.002A - Fracture of unspecified part of neck of left femur, initial encounter for closed fracture Assessment & Plan: 11/11/16 total hip arthroplasty (left) (4) TIA (transient ischemic attack) Status: Chronic (5) CAD (coronary artery disease) Status: Chronic (6) HTN (hypertension) Status: Chronic (7) Type 2 diabetes mellitus Status: Chronic (8) Alzheimer's dementia Status: Chronic (9) Abnormal EKG Assessment & Plan: Sinus bradycardia, first-degree block, left atrial enlargement, moderate ST depression. Patient asymptomatic (10) Elevated TSH Status: Acute Plan/Intensity of Service POD #1 Medically stable, though needing intermittent oxygen (on room air at time of my visit). Resume aspirin and amlodipine today, and restart losartan tomorrow - renal function stable. Hgb down slightly to 10. PT/OT consulted. Ortho recommends Lovenox x30 days. Discussed ASA with Dr. Mathews - recommend to resume ASA when Lovenox course completed. Hypokalemia (3.3) - oral replacement ordered. Proteus mirabilis UTI, pansensitive - cont. Keflex. ADIEL Leggett today. Speech evaluation - regular diet, regular liquids, swallow precautions. High risk medication in use - IV Dilaudid. DVT Prophylaxis: Lovenox Code Status Full Code Hospital Course Summary Disclaimer The hospital course summary below is not to be considered part of the above Progress Note. Hospital Course Summary 3/18/17 Admit, inpatient status. Dr. Mathews attending. PCP: Dr. Tamez Code status: Granddaughter believes that patient would want DNR, but no orders have been signed. Will leave full code for the time being. Consult CM to help with advanced directives and to assist with discharge planning. Granddaughter was advised that she will most likely need to go to SNF or rehab after hospital stay. Dx: Left femoral neck fracture. Consult Dr. Perry. He will plan on sx tomorrow am. OK with 1-time dose of Lovenox now. Need to medically clear - labs have been ordered after arrival to the surgical unit - CBC, CMP, INR for preop clearance; type and screen because of fracture and blood loss; check TSH, vitamin B12, and prealbumin with hx of dementia and decreased appetite. Check A1c d/t DM. Insert Leggett catheter for comfort and check UA. Check EKG - mild bradycardia noted . Monitor blood glucose QID. Cont. Lantus HS. Hold ASA, amlodipine, and losartan to minimize chance of periop. hypotension. Continue BB for now. Hx of dementia - will ask ST to evaluate her given risk for dysphagia. She's also at risk of acute delirium. Will have Zyprexa Zydis available if needed. 11/11/16 Tolerated surgery well this morning. Monitor Accu-Cheks, continue Lantus 6 units at HS along with sliding scale Humalog. On admission, patient's diabetes was uncontrolled. Given that her A1c was 10.5. Continue on IV Rocephin daily for antimicrobial coverage of acute urinary tract infection. Urine culture luminary indicates gram-negative jaqueline. Will monitor for final report. May switch to oral antibiotic at that time. Continue scheduled senna plus, and MiraLAX for postoperative bowel motivation. Lovenox subcutaneous daily for postoperative prophylaxis. Will confirm with orthopedic team that patient will need this for 30 days postoperatively. Did confirm with patient's granddaughter that she [facility]. She often sees any of the Nurse Practitioners. Will encourage physical therapy tomorrow to begin postoperative strengthening Metabolic bone disease consultation has been placed Have speech evaluate for dysphasia. Given patient's history of dementia 11/12/16 POD #1 Medically stable, though needing intermittent oxygen (on room air at time of my visit). Resume aspirin and amlodipine today, and restart losartan tomorrow - renal function stable. Hgb down slightly to 10. PT/OT consulted. Ortho recommends Lovenox x30 days. Discussed ASA with Dr. Mathews - recommend to resume ASA when Lovenox course completed. Hypokalemia (3.3) - oral replacement ordered. Proteus mirabilis UTI, pansensitive - cont. Keflex. DC Leggett today. Speech evaluation - regular diet, regular liquids, swallow precautions. High risk medication in use - IV Dilaudid. KATIE MATHEWS MD 11/12/16 2213: Assessment & Plan Assessment 11/12/2016-I reviewed this chart, the patient history, and the SYNTHETIC CLOTH BINDING CUTTER's/PA's documented findings as above. We discussed and formulated the assessment and plan as above with the additions below.-Dr. Mathews Patient is doing very well. She did have some decreased urine output today and therefore IV fluids were resumed. She's been eating and drinking well. She has not been agitated. She has had family here the majority of the time. Family would like to take her back home instead of going to senior care if possible. Pain control has been fairly good. The patient was able to get up and pivot with her walker today. On exam she is alert and in no acute distress. She is pleasantly demented. Chest is clear to auscultation. Cardiovascular reveals a regular rate and rhythm. Abdomen is soft and nontender. Extremities reveal no edema. Increase Lantus to 10 units at night due to elevated blood sugar. Hopefully DC IV fluids tomorrow. Continue with physical therapy. Hopefully the patient will be doing well enough to go home with family. DANAY MCCONNELL APRN Nov 12, 2016 12:17 KATIE MATHEWS MD Nov 12, 2016 22:13
[2016-11-12] MEDS: AMLODIPINE 10 MG TABLET PO SCH (13:55)
[2016-11-12] MEDS: LR 1,000 ML IV SCH (14:54)
[2016-11-12] MEDS: ATORVASTATIN 20 MG TABLET PO SCH (22:02)
[2016-11-12] MEDS: DONEPEZIL 10 MG TABLET PO SCH (22:02)
[2016-11-12] MEDS: INSULIN GLARGINE 100 UNIT/ML SQ SCH (22:03)
[2016-11-12] MEDS: ENOXAPARIN 40 MG/0.4 ML INJECTION SQ SCH (22:05)
[2016-11-12] MEDS ORDERED: INSULIN GLARGINE 100 UNIT/ML SQ ONE (22:15)
[2016-11-13] VITALS (9 sets, daily range): BP systolic 117–151; BP diastolic 54–79; PULSE 61–95; RESP 13–20; TEMP 95.5–98.9; O2SAT 93–97
--- NOTE | 2016-11-13 00:50 | NUR ---
Chart Check 24 hour chart check completed
[2016-11-13] MEDS: NOZIN NASAL SWAB NS SCH ×4 (01:02→22:24)
[2016-11-13 04:54] LABS: BASOPHILS % (AUTO) 0.2 % (0-2); EOSINOPHILS # (AUTO) 0.2 T/MM3 (0-0.5); EOSINOPHILS % (AUTO) 4.3 % (0-4); LYMPHOCYTES % (AUTO) 18.7 % (23-45); MEAN CORPUSCULAR HGB 26.2 UUG (26-34); MEAN CORPUSCULAR HGB CONC(MCHC 31.3 GM/DL (31-37); MEAN CORPUSCULAR VOLUME 83.8 UM3 (80-100); MEAN PLATELET VOLUME 11.9 UM3 (9.4-12.4); MONOCYTES # (AUTO) 0.4 T/MM3 (0-0.8); MONOCYTES % (AUTO) 7.7 % (0-9.0); NEUTROPHILS #(AUTO)-ABSOLUTE 3.7 T/MM3 (1.8-7.7); NEUTROPHILS % (AUTO) 69.1 % (33-66); RED BLOOD COUNT 3.82 M/MM3 (4.00-5.20); WBC - WHITE BLOOD COUNT 5.4 T/MM3 (4.5-11.0)
[2016-11-13 05:13] LABS: ANION GAP 8 MEQ/L (5-15); BUN/CREATININE RATIO 34 RATIO (6-26); CALCIUM 8.1 MG/DL (8.4-10.2); CHLORIDE 100 MEQ/L (98-107); CO2 - CARBON DIOXIDE 29 MEQ/L (22-30); CREATININE 0.7 MG/DL (0.7-1.2); GLOMERULAR FILTRATION RATE 79; GLUCOSE 104 MG/DL (65-110); POTASSIUM 3.8 MEQ/L (3.6-5); SODIUM 137 MEQ/L (134-144)
[2016-11-13] MEDS: LEVOTHYROXINE 25 MCG TABLET PO SCH (05:43)
--- NOTE | 2016-11-13 07:24 | NUR ---
SHIFT SUMMARY PT HAS SLEPT OFF AND ON DURING THE NIGHT. PT HAS BEEN ALERT TO PERSON, VITAL SIGNS STABLE ON ROOM AIR. DENIES PAIN,N/V AND SOA. GRANDDAUGHTER HAS BEEN AT THE BEDSIDE. PT TURNED Q2H. TEIXEIRA CATHETER WITH ADEQUATE OUTPUT. MEDS CRUSHED IN APPLESAUCE LAST NIGHT DUE TO PT NOT BEING ABLE TO FOLLOW DIRECTIONS WITH DRINKING WATER WITH PILLS, GRANDDAUGHTER HAD LEFT HOSPITAL AT THIS TIME. GRANDDAUGHTER VERY HELPFUL WITH PT TAKING MEDS. LR RUNNING @ 50ML/HR IN RIGHT FA. BGM THIS AM WAS 108. ICE PACK TO LEFT HIP, MEPILEX DRESSING C/D/I. BED LOCKED AND LOW, BED ALARM ON. CALL LIGHT WITHIN REACH. WILL CONTINUE TO MONITOR.
[2016-11-13] MEDS: MULTIVITAMIN + MINERAL TABLET PO SCH (09:08)
[2016-11-13] MEDS: ATENOLOL 25 MG TABLET PO SCH ×2 (09:09→22:24)
[2016-11-13] MEDS: CEPHALEXIN 500 MG CAPSULE PO SCH ×2 (09:09→22:23)
[2016-11-13] MEDS: CYANOCOBALAMIN (B-12) 500mcg TABLET PO SCH (09:09)
[2016-11-13] MEDS: SENNA + DOCUSATE TAB PO SCH ×2 (09:10→22:23)
[2016-11-13] MEDS: LOSARTAN 100 MG TABLET PO SCH (09:10)
[2016-11-13] MEDS: AMLODIPINE 10 MG TABLET PO SCH (09:12)
[2016-11-13] MEDS: POLYETHYL.GLYCOL 3350 PACKET 17gm PO SCH (09:16)
[2016-11-13] MEDS: LR 1,000 ML IV SCH (10:26)
[2016-11-13] MEDS: INSULIN LISPRO 100 UNIT/ML SQ PRN ×3 (10:26→22:53)
--- NOTE | 2016-11-13 10:39 | NUR ---
RAQUEL THIS ANALYSIS OR RESEARCH SAFETY INSPECTOR IN TO VISIT WITH PATIENT, GRAND DAUGHTER IS AT BEDSIDE. TALKED WITH GD SHE HAS EXPRESSED CONCERN THAT GRANDMA MAY NEED TO GO TO [facility] FOR SKILLED THERAPY BUT WANTS TO TAKE HER HOME SOON POSSIBLE AND WHEN GRANDMA IS READY. GD BECAME TEARFUL WANTS TO BE SURE THAT SHE IS ABLE TO TAKE HER HOME AND THAT THE LONG-TERM WON'T TRY TO KEEP GRANDMA. RAQUEL TALKED WITH GD THIS IS SHORT TERM SKILLED CARE ONLY 30 DAYS OR LESS. [facility] NOTIFIED OF POTENTIAL ADMIT TODAY OR TOMORROW, ALSO MADE NATALIIA AWARE OF GD FEARS.
[2016-11-13] MEDS ORDERED: BISACODYL 10 MG SUPPOSITORY RECTALLY PRN (12:00)
[2016-11-13] MEDS: GLIMEPIRIDE 1 MG TABLET PO SCH (12:29)
--- NOTE | 2016-11-13 12:36 | PNPDOC ---
Subjective Date DATE: 11/13/16 TIME: 12:14 Subjective F/U: Left hip fracture Doing okay. Stools not moved-pt struggled for bowel this am, but no success. No ab pain or nausea. Eating well, but oral intake of liquids decreased. Breathing well. Tolerating therapy. Pain varies. Objective Vital Signs Vital signs Vital Signs Date Time Temp Pulse Resp B/P Pulse Ox O2 Delivery O2 Flow Rate FiO2 11/13/16 12:08 97.1 71 16 120/65 97 Room Air 11/12/16 23:42 1.00 Height (Feet): 5 Height (Inches): 3.00 Weight (Kilograms): 62.700 Laboratory Laboratory Laboratory Tests 11/12/16 04:16 11/13/16 03:49 Laboratory Tests 11/12/16 04:16 11/13/16 03:49 Microbiology Microbiology Microbiology Date/Time Source Procedure Growth Status 11/10/16 17:35 Urine, Leggett Indwelling Urine Culture - Final Proteus Mirabilis Complete Assessment & Plan Problems: (1) Femoral neck fracture Status: Acute Qualifiers: Encounter type: initial encounter Fracture type: closed Laterality: left Qualified Codes: S72.002A - Fracture of unspecified part of neck of left femur, initial encounter for closed fracture Assessment & Plan: 11/11/16 total hip arthroplasty (left) (2) UTI (urinary tract infection) Status: Acute Assessment & Plan: MICROBIOLOGY URINE CULTURE. Final 11/12/16-36 Organism 1 PROTEUS MIRABILIS COLONY COUNT >100,000 CFU/ml PROMIR INTERP KALA ------ --------- AMOX/CLAV ACID S <=2 AMPICILLIN S <=2 CEFAZOLIN S <=4 CEFEPIME S <=1 CEFTAZIDIME S <=1 CEFTRIAXONE S <=1 CIPROFLOXACIN S <=0.25 ERTAPENEM S <=0.5 GENTAMICIN S <=1 LEVOFLOXACIN S <=0.12 NITROFURANTOIN R 128 TOBRAMYCIN S <=1 TRIMETH/SULFA S <=20 PIPERACILL/TAZO S <=4 (3) Hypokalemia Status: Resolved Assessment & Plan: POA (4) CAD (coronary artery disease) Status: Chronic Qualifiers: Coronary Disease-Associated Artery/Lesion type: [place] artery [place] vs. transplanted heart: [place] heart Associated angina: without angina Qualified Codes: I25.10 - Atherosclerotic heart disease of [place] coronary artery without angina pectoris (5) HTN (hypertension) Status: Chronic Qualifiers: Hypertension type: essential hypertension Qualified Codes: I10 - Essential (primary) hypertension (6) Hyperlipidemia Status: Chronic Qualifiers: Hyperlipidemia type: unspecified Qualified Codes: E78.5 - Hyperlipidemia, unspecified (7) Type 2 diabetes mellitus Status: Chronic (8) Alzheimer's dementia Status: Chronic Qualifiers: Alzheimer's disease onset: unspecified onset Dementia behavioral disturbance: without behavioral disturbance Qualified Codes: F02.80 - Dementia in other diseases classified elsewhere without behavioral disturbance; G30.9 - Alzheimer's disease, unspecified (9) Abnormal EKG Assessment & Plan: Sinus bradycardia, first-degree block, left atrial enlargement, moderate ST depression. Patient asymptomatic (10) Constipation Status: Acute Qualifiers: Constipation type: slow transit constipation Qualified Codes: K59.01 - Slow transit constipation (11) Dysphagia Status: Acute Qualifiers: Dysphagia type: oral phase Qualified Codes: R13.11 - Dysphagia, oral phase Assessment & Plan: Speech recommends: Dysphagia soft diet/chopped meat and regular liquids by cup - NO Straws (12) Hypothyroidism Status: Acute Qualifiers: Hypothyroidism type: acquired Qualified Codes: E03.9 - Hypothyroidism, unspecified Assessment & Plan: Dx this hospitalization. (13) TIA (transient ischemic attack) Status: Chronic Plan/Intensity of Service Will d/c IVF as taking po well. D/C Leggett cath. Continue soft diet/chopped meat and regular liquids by cup, no straws as recommended by speech. Work on bowel function - MOM now and if not seeing any stool, Dulcolax suppository. Start Calcium with Vit D BID due to fracture (Vit D levels pending). Continue with Lantus 10 units at night - add Amaryl 1 mg daily with breakfast to help glycemic control. Can restart home ASA 81mg daily due to underlying CAD. Continue PT/OT to help maximize functional status. Continue cephalexin for urinary coverage. Continue Synthroid 0.025mg for hypothyroidism. Will d/c Dilaudid (not used) - worry this far out would cause increased confusion. Likely will need Skilled care post discharge - CM working on arrangements. Recheck BMP in am due to HTN and medication use, as well as to monitor serum sodium. Repeat CBC in am due to UTI and hip fracture to monitor blood counts. Case discussed with nursing and CM. Time spent with patient care 35 minutes. DVT Prophylaxis: SCD'S, Lovenox Code Status Full Code Hospital Course Summary Disclaimer The hospital course summary below is not to be considered part of the above Progress Note. Hospital Course Summary 11/10/16 Admit, inpatient status. Dr. Mathews attending. PCP: Dr. Tamez Code status: Granddaughter believes that patient would want DNR, but no orders have been signed. Will leave full code for the time being. Consult CM to help with advanced directives and to assist with discharge planning. Granddaughter was advised that she will most likely need to go to SNF or rehab after hospital stay. Dx: Left femoral neck fracture. Consult Dr. Perry. He will plan on sx tomorrow am. OK with 1-time dose of Lovenox now. Need to medically clear - labs have been ordered after arrival to the surgical unit - CBC, CMP, INR for preop clearance; type and screen because of fracture and blood loss; check TSH, vitamin B12, and prealbumin with hx of dementia and decreased appetite. Check A1c d/t DM. Insert Leggett catheter for comfort and check UA. Check EKG - mild bradycardia noted . Monitor blood glucose QID. Cont. Lantus HS. Hold ASA, amlodipine, and losartan to minimize chance of periop. hypotension. Continue BB for now. Hx of dementia - will ask ST to evaluate her given risk for dysphagia. She's also at risk of acute delirium. Will have Zyprexa Zydis available if needed. 11/11/16 OP DAY - Total hip arthroplasty (left) Tolerated surgery well this morning. Monitor Accu-Cheks, continue Lantus 6 units at HS along with sliding scale Humalog. On admission, patient's diabetes was uncontrolled. Given that her A1c was 10.5. Continue on IV Rocephin daily for antimicrobial coverage of acute urinary tract infection. Urine culture luminary indicates gram-negative jaqueline. Will monitor for final report. May switch to oral antibiotic at that time. Continue scheduled senna plus, and MiraLAX for postoperative bowel motivation. Lovenox subcutaneous daily for postoperative prophylaxis. Will confirm with orthopedic team that patient will need this for 30 days postoperatively. Did confirm with patient's granddaughter that she is a patient of [facility]. She often sees any of the Nurse Practitioners. Will encourage physical therapy tomorrow to begin postoperative strengthening Metabolic bone disease consultation has been placed Have speech evaluate for dysphasia. Given patient's history of dementia 3 POD #1 Medically stable, though needing intermittent oxygen (on room air at time of my visit). Resume aspirin and amlodipine today, and restart losartan tomorrow - renal function stable. Hgb down slightly to 10. PT/OT consulted. Ortho recommends Lovenox x30 days. Discussed ASA with Dr. Mathews - recommend to resume ASA when Lovenox course completed. Hypokalemia (3.3) - oral replacement ordered. Proteus mirabilis UTI, pansensitive - cont. Keflex. DC Leggett today. Speech evaluation. High risk medication in use - IV Dilaudid. 11/13 - POD #2 Doing okay. Stools not moved-pt struggled for bowel this am, but no success. No ab pain or nausea. Eating well, but oral intake of liquids decreased. Breathing well. Tolerating therapy. Pain varies. Hemoglobin stable. Potassium improved to 3.8. Creatinine stable at 0.7. Non Fasting blood sugars with elevation. Will d/c IVF as taking po well. D/C Leggett cath. Continue soft diet/chopped meat and regular liquids by cup, no straws as recommended by speech. Work on bowel function - MOM now and if not seeing any stool, Dulcolax suppository. Start Calcium with Vit D BID due to fracture (Vit D levels pending). Continue with Lantus 10 units at night - add Amaryl 1 mg daily with breakfast to help glycemic control. Can restart home ASA 81mg daily due to underlying CAD. Continue PT/OT to help maximize functional status. Continue cephalexin for urinary coverage. Continue Synthroid 0.025mg for hypothyroidism. Will d/c Dilaudid (not used) - worry this far out would cause increased confusion. Likely will need Skilled care post discharge - CM working on arrangements. Recheck BMP in am due to HTN and medication use, as well as to monitor serum sodium. Repeat CBC in am due to UTI and hip fracture to monitor blood counts. HANSEL SCRUGGS MD Nov 13, 2016 12:17
--- NOTE | 2016-11-13 16:29 | NUR ---
STATUS PT ALERT TO PERSON. WHEN GRANDDAUGHTER IS IN ROOM, PT PLEASANTLY CONFUSED. WHEN GRANDDAUGHTER IS GONE, PT MORE AGITATED WITH CARES. UP WITH ASSIST OF 2 WITH GAIT BELT AND WALKER. PT STANDS AND PIVOTS, NEEDS QUEUING TO TAKE STEPS. PRN NORCO GIVEN FOR PAIN. PT IS FED BY GRANDDAUGHTER OR STAFF, HAS A GOOD APPETITE. TURNING Q2 WITH 2 IN BED. PRN DULCOLAX SUPPOSITORY GIVEN. PT RESTING IN BED. CALL LIGHT WITHIN REACH. FREQUENTLY ROUNDING. WILL CONTINUE TO MONITOR.
[2016-11-13] MEDS ORDERED: INSULIN GLARGINE 100 UNIT/ML SQ SCH (22:00)
[2016-11-13] MEDS: CALCIUM 600mg + VIT D 400 TABLET PO SCH (22:23)
[2016-11-13] MEDS: DONEPEZIL 10 MG TABLET PO SCH (22:23)
[2016-11-13] MEDS: ATORVASTATIN 20 MG TABLET PO SCH (22:23)
[2016-11-13] MEDS: ENOXAPARIN 40 MG/0.4 ML INJECTION SQ SCH (22:24)
[2016-11-14] VITALS: BP 135/71; PULSE 74; RESP 20; TEMP 96.2; O2SAT 96
[2016-11-14] MEDS: NOZIN NASAL SWAB NS SCH ×2 (01:00→08:42)
--- NOTE | 2016-11-14 02:09 | NUR ---
Chart Check 24 hour chart check completed
--- NOTE | 2016-11-14 05:22 | NUR ---
DR WEBER REMOVED IV LOCK OUT. NOTIFIED DR CHEN VIA TIGER TEXT. MAY LEAVE IV LOCK OUT PER DR ORDER. CONTINUE TO MONITOR.
[2016-11-14 05:23] LABS: BASOPHILS % (AUTO) 0.3 % (0-2); EOSINOPHILS # (AUTO) 0.2 T/MM3 (0-0.5); EOSINOPHILS % (AUTO) 3.1 % (0-4); HCT - HEMATOCRIT 31.7 % (36-46); IMMATURE GRANULOCYTE # (AUTO) 0.01 T/MM3 (0.00-0.03); IMMATURE GRANULOCYTE % (AUTO) 0.2 % (0.0-0.5); LYMPHOCYTES # (AUTO) 0.9 T/MM3 (1-4.8); LYMPHOCYTES % (AUTO) 13.9 % (23-45); MEAN CORPUSCULAR HGB 26.2 UUG (26-34); MEAN CORPUSCULAR HGB CONC(MCHC 31.5 GM/DL (31-37); MEAN PLATELET VOLUME 11.8 UM3 (9.4-12.4); MONOCYTES # (AUTO) 0.4 T/MM3 (0-0.8); MONOCYTES % (AUTO) 6.5 % (0-9.0); NEUTROPHILS #(AUTO)-ABSOLUTE 4.9 T/MM3 (1.8-7.7); RED BLOOD COUNT 3.82 M/MM3 (4.00-5.20); WBC - WHITE BLOOD COUNT 6.5 T/MM3 (4.5-11.0)
[2016-11-14 05:24] VITALS: BP 136/76; PULSE 66; RESP 20; TEMP 95.9; O2SAT 95
[2016-11-14 05:36] LABS: ANION GAP 7 MEQ/L (5-15); BUN/CREATININE RATIO 31 RATIO (6-26); CALCIUM 8.4 MG/DL (8.4-10.2); CHLORIDE 102 MEQ/L (98-107); CO2 - CARBON DIOXIDE 29 MEQ/L (22-30); CREATININE 0.7 MG/DL (0.7-1.2); GLOMERULAR FILTRATION RATE 79; GLUCOSE 125 MG/DL (65-110); POTASSIUM 3.7 MEQ/L (3.6-5); SODIUM 138 MEQ/L (134-144)
[2016-11-14] MEDS: LEVOTHYROXINE 25 MCG TABLET PO SCH (06:47)
--- NOTE | 2016-11-14 07:43 | NUR ---
STATUS PATIENT HAS SLEPT ON AND OFF DURING NIGHT. PRN NORCO WAS GIVEN BY USING [employer]OLAN[employer] FACES PAIN SCALE. ON ROOM AIR.NO C/O CHEST PAIN,SOA,OR N/V. UNABLE TO USE CALL LIGHT AT NIGHT. BED ALARM ON. MED CRUSHED IN APPLE SAUCES . PATIENT UP TO COMMODE X2 ASSIST . NO BM DURING NIGHT. CONTINUE TO MONITOR.
[2016-11-14] MEDS: GLIMEPIRIDE 1 MG TABLET PO SCH (08:39)
[2016-11-14] MEDS: CALCIUM 600mg + VIT D 400 TABLET PO SCH (08:40)
[2016-11-14] MEDS: CEPHALEXIN 500 MG CAPSULE PO SCH (08:40)
[2016-11-14] MEDS: AMLODIPINE 10 MG TABLET PO SCH (08:42)
[2016-11-14] MEDS: CYANOCOBALAMIN (B-12) 500mcg TABLET PO SCH (08:42)
[2016-11-14] MEDS: MULTIVITAMIN + MINERAL TABLET PO SCH (08:42)
[2016-11-14] MEDS: SENNA + DOCUSATE TAB PO SCH (08:42)
[2016-11-14] MEDS ORDERED: ASPIRIN 81 MG CHEWABLE TABLET PO SCH (09:00)
[2016-11-14] MEDS: POLYETHYL.GLYCOL 3350 PACKET 17gm PO SCH (09:03)
[2016-11-14] MEDS: LOSARTAN 100 MG TABLET PO SCH (09:04)
[2016-11-14] MEDS: ATENOLOL 25 MG TABLET PO SCH (09:04)
[2016-11-14 09:05] VITALS: BP 124/67; PULSE 84; RESP 16; TEMP 99.1; O2SAT 96
--- NOTE | 2016-11-14 09:56 | NUR ---
RAQUEL CM IN TO VISIT WITH PT. SHE IS ORIENTED TO PERSON. HER GRANDDAUGHTER/ CAREGIVER IS PRESENT. SHE CONFIRMS THAT PLAN IS FOR PT TO DC TO [facility] FOR SNF. SHE IS MADE AWARE THAT DC IS POSSIBLE TODAY. Addendum: 11/14/16 at 0957 by LUCA ANDRADE RN Amended: Links added.
[2016-11-14 11:27] VITALS: PULSE 84; RESP 16
--- NOTE | 2016-11-14 12:38 | NUR ---
CM PER SIMON FROM NATALIIA AT [facility], THEY HAVE GOTTEN [facility] FROM [facility] AND CAN ACCEPT PT FOR SNF.
[2016-11-14] MEDS: INSULIN LISPRO 100 UNIT/ML SQ PRN ×2 (12:41→14:49)
[2016-11-14 12:42] VITALS: BP 142/67; PULSE 69; RESP 16; TEMP 99.2; O2SAT 97
[2016-11-14] MEDS ORDERED: CEPH500C2 PO (12:59)
[2016-11-14] MEDS ORDERED: ENOX40DI SQ (12:59)
[2016-11-14] MEDS ORDERED: CYAN500T2 PO (12:59)
[2016-11-14] MEDS ORDERED: INSU100V8 SQ (12:59)
[2016-11-14] MEDS ORDERED: OLAN5TAB5 PO (12:59)
[2016-11-14] MEDS ORDERED: BISA10SU8 RECTALLY (12:59)
[2016-11-14] MEDS ORDERED: SENN-152 PO (12:59)
[2016-11-14] MEDS ORDERED: ACET-2321 PO (12:59)
[2016-11-14] MEDS ORDERED: LEVO25TA4 PO (12:59)
[2016-11-14] MEDS ORDERED: CALC-747 PO (12:59)
[2016-11-14] MEDS ORDERED: HYDR-4072 PO (12:59)
[2016-11-14] MEDS ORDERED: POLY17PO18 PO (12:59)
[2016-11-14] MEDS ORDERED: MAGN400O4 PO (12:59)
[2016-11-14] MEDS ORDERED: GLIM1TAB2 PO (12:59)
--- NOTE | 2016-11-14 13:06 | NUR ---
RAQUEL GARCÍA LET NATALIIA AT [facility] KNOW THAT DC IS PLANNED FOR TODAY FOR SNF.
--- NOTE | 2016-11-14 13:17 | PNPDOC ---
Subjective Date DATE: 11/14/16 TIME: 13:06 Subjective F/U: Left hip fracture Doing okay overall. Walked to bathroom with therapy. Pain varies-non at rest, but does have discomfort with movements. Eating less today than yesterday, notes slight nausea. Did have bowel movement. Breathing well. Objective Vital Signs Vital signs Vital Signs Date Time Temp Pulse Resp B/P Pulse Ox O2 Delivery O2 Flow Rate FiO2 11/14/16 12:42 99.2 69 16 142/67 97 Room Air 11/12/16 23:42 1.00 Height (Feet): 5 Height (Inches): 3.00 Weight (Kilograms): 60.800 General General Appearance: Alert, Well Nourished, Well Developed, Cooperative, No Acute Distress, Looks Stated Age Eyes (Brief) Eyes: FOUND: EOMI, PERRL, NOT FOUND: scleral icterus ENMT (Brief) ENMT: FOUND: hearing intact, mucosa moist Neck (Brief) Neck: FOUND: midline, NOT FOUND: nuchal rigidity, spasm Respiratory (Brief) Respiratory: FOUND: clear all naqvi, equal bilaterally, NOT FOUND: rales Cardiovascular (Brief) Cardiac: FOUND: regular rate, regular rhythm Abdomen (Brief) Abdominal: FOUND: BS normo active x4, soft, NOT FOUND: distended, tender Extremities (Brief) Extremity : Extremity: leg Extremity Finding: FOUND: edema (trace ), other (scd in place) Musculoskeletal (Brief) Musculoskeletal: NOT FOUND: spasm Integumentary (Brief) Integumentary: FOUND: dry, warm Neurologic (Brief) Neurological: FOUND: cranial 2-12 intact, motor (Intact ) Psychiatric (Brief) Psychiatric: FOUND: alert, normal affect Laboratory Laboratory Laboratory Tests 11/13/16 03:49 11/14/16 04:37 Laboratory Tests 11/13/16 03:49 11/14/16 04:37 Assessment & Plan Problems: (1) Femoral neck fracture Status: Acute Qualifiers: Encounter type: initial encounter Fracture type: closed Laterality: left Qualified Codes: S72.002A - Fracture of unspecified part of neck of left femur, initial encounter for closed fracture Assessment & Plan: 11/11/16 total hip arthroplasty (left) (2) UTI (urinary tract infection) Status: Acute Assessment & Plan: MICROBIOLOGY URINE CULTURE. Final 03/ Organism 1 PROTEUS MIRABILIS COLONY COUNT >100,000 CFU/ml PROMIR INTERP KALA ------ --------- AMOX/CLAV ACID S <=2 AMPICILLIN S <=2 CEFAZOLIN S <=4 CEFEPIME S <=1 CEFTAZIDIME S <=1 CEFTRIAXONE S <=1 CIPROFLOXACIN S <=0.25 ERTAPENEM S <=0.5 GENTAMICIN S <=1 LEVOFLOXACIN S <=0.12 NITROFURANTOIN R 128 TOBRAMYCIN S <=1 TRIMETH/SULFA S <=20 PIPERACILL/TAZO S <=4 (3) Hypokalemia Status: Resolved Assessment & Plan: POA (4) CAD (coronary artery disease) Status: Chronic Qualifiers: Coronary Disease-Associated Artery/Lesion type: [place] artery [place] vs. transplanted heart: [place] heart Associated angina: without angina Qualified Codes: I25.10 - Atherosclerotic heart disease of [place] coronary artery without angina pectoris (5) HTN (hypertension) Status: Chronic Qualifiers: Hypertension type: essential hypertension Qualified Codes: I10 - Essential (primary) hypertension (6) Hyperlipidemia Status: Chronic Qualifiers: Hyperlipidemia type: unspecified Qualified Codes: E78.5 - Hyperlipidemia, unspecified (7) Type 2 diabetes mellitus Status: Chronic (8) Alzheimer's dementia Status: Chronic Qualifiers: Alzheimer's disease onset: unspecified onset Dementia behavioral disturbance: without behavioral disturbance Qualified Codes: F02.80 - Dementia in other diseases classified elsewhere without behavioral disturbance; G30.9 - Alzheimer's disease, unspecified (9) Abnormal EKG Assessment & Plan: Sinus bradycardia, first-degree block, left atrial enlargement, moderate ST depression. Patient asymptomatic (10) Constipation Status: Acute Qualifiers: Constipation type: slow transit constipation Qualified Codes: K59.01 - Slow transit constipation (11) Dysphagia Status: Acute Qualifiers: Dysphagia type: oral phase Qualified Codes: R13.11 - Dysphagia, oral phase Assessment & Plan: Speech recommends: Dysphagia soft diet/chopped meat and regular liquids by cup - NO Straws (12) Hypothyroidism Status: Acute Qualifiers: Hypothyroidism type: acquired Qualified Codes: E03.9 - Hypothyroidism, unspecified Assessment & Plan: Dx this hospitalization. (13) TIA (transient ischemic attack) Status: Chronic Plan/Intensity of Service Will d[facility]c to [facility]. Continue with Lovenox for 27 more days. PT/OT to help maximize functional status. F/U with Dr Tamez in 1 week F/U with Ortho on 12/03 at 10:30am. See orders for details. Case discussed with nursing and CM. Time spent with patient care 35 minutes. DVT Prophylaxis: SCD'S, Lovenox Code Status Full Code Hospital Course Summary Disclaimer The hospital course summary below is not to be considered part of the above Progress Note. Hospital Course Summary 11/10/16 Admit, inpatient status. Dr. Mathews attending. PCP: Dr. Tamez Code status: Granddaughter believes that patient would want DNR, but no orders have been signed. Will leave full code for the time being. Consult CM to help with advanced directives and to assist with discharge planning. Granddaughter was advised that she will most likely need to go to SNF or rehab after hospital stay. Dx: Left femoral neck fracture. Consult Dr. Perry. He will plan on sx tomorrow am. OK with 1-time dose of Lovenox now. Need to medically clear - labs have been ordered after arrival to the surgical unit - CBC, CMP, INR for preop clearance; type and screen because of fracture and blood loss; check TSH, vitamin B12, and prealbumin with hx of dementia and decreased appetite. Check A1c d/t DM. Insert Leggett catheter for comfort and check UA. Check EKG - mild bradycardia noted . Monitor blood glucose QID. Cont. Lantus HS. Hold ASA, amlodipine, and losartan to minimize chance of periop. hypotension. Continue BB for now. Hx of dementia - will ask ST to evaluate her given risk for dysphagia. She's also at risk of acute delirium. Will have Zyprexa Zydis available if needed. 11/11/16 OP DAY - Total hip arthroplasty (left) Tolerated surgery well this morning. Monitor Accu-Cheks, continue Lantus 6 units at HS along with sliding scale Humalog. On admission, patient's diabetes was uncontrolled. Given that her A1c was 10.5. Continue on IV Rocephin daily for antimicrobial coverage of acute urinary tract infection. Urine culture luminary indicates gram-negative jaqueline. Will monitor for final report. May switch to oral antibiotic at that time. Continue scheduled senna plus, and MiraLAX for postoperative bowel motivation. Lovenox subcutaneous daily for postoperative prophylaxis. Will confirm with orthopedic team that patient will need this for 30 days postoperatively. Did confirm with patient's granddaughter that she is a patient of [facility]. She often sees any of the Nurse Practitioners. Will encourage physical therapy tomorrow to begin postoperative strengthening Metabolic bone disease consultation has been placed Have speech evaluate for dysphasia. Given patient's history of dementia 3 POD #1 Medically stable, though needing intermittent oxygen (on room air at time of my visit). Resume aspirin and amlodipine today, and restart losartan tomorrow - renal function stable. Hgb down slightly to 10. PT/OT consulted. Ortho recommends Lovenox x30 days. Discussed ASA with Dr. Mathews - recommend to resume ASA when Lovenox course completed. Hypokalemia (3.3) - oral replacement ordered. Proteus mirabilis UTI, pansensitive - cont. Keflex. DC Leggett today. Speech evaluation. High risk medication in use - IV Dilaudid. 11/13 - POD #2 Doing okay. Stools not moved-pt struggled for bowel this am, but no success. No ab pain or nausea. Eating well, but oral intake of liquids decreased. Breathing well. Tolerating therapy. Pain varies. Hemoglobin stable. Potassium improved to 3.8. Creatinine stable at 0.7. Non Fasting blood sugars with elevation. Will d/c IVF as taking po well. D/C Leggett cath. Continue soft diet/chopped meat and regular liquids by cup, no straws as recommended by speech. Work on bowel function - MOM now and if not seeing any stool, Dulcolax suppository. Start Calcium with Vit D BID due to fracture (Vit D levels pending). Continue with Lantus 10 units at night - add Amaryl 1 mg daily with breakfast to help glycemic control. Can restart home ASA 81mg daily due to underlying CAD. Continue PT/OT to help maximize functional status. Continue cephalexin for urinary coverage. Continue Synthroid 0.025mg for hypothyroidism. Will d/c Dilaudid (not used) - worry this far out would cause increased confusion. Likely will need Skilled care post discharge - CM working on arrangements. Recheck BMP in am due to HTN and medication use, as well as to monitor serum sodium. Repeat CBC in am due to UTI and hip fracture to monitor blood counts. 11/14 POD #3 Doing okay overall. Walked to bathroom with therapy. Pain varies-non at rest, but does have discomfort with movements. Eating less today than yesterday, notes slight nausea. Did have bowel movement. Breathing well. Will d/c to [facility]. Continue with Lovenox for 27 more days. PT/OT to help maximize functional status. F/U with Dr Tamez in 1 week F/U with Ortho on 12/03 at 10:30am. See orders for details. AHNSEL SCRUGGS MD Nov 14, 2016 13:11
--- NOTE | 2016-11-14 13:22 | PDOCECFAO ---
Admission Orders Admission Orders Admit to: [facility] Allergies: Coded Allergies: pentazocine (Verified Allergy, Unknown, 11/10/16) Admitting Diagnosis Femur Fracture Admitting Physician Adela Mathews MD Attending Physician Dr Tamez Code Status Full Code Anticipated LOS: 30 days or less Rehab Potential: Fair Rehab Prognosis: Good Diet: No Concentrated Sweets, Soft (Soft diet, chopped meat, regular liquids. No straws.) Wound/Incision Care: The Mepilex dressing can be removed after 11/25/16. Keep the wound dry until the dressing is removed. Notify Dr Perry's office if water gets under the Mepilex dressing before 11/25/16. May use Facility Protocol /SO: Yes May Have Flu Vaccine: Yes Evaluations/Treat: Speech, PT, OT [facility] Certification I certify that SNF services are required to be given on an Inpatient basis because of the patients need for assisted care on a continuing basis for the condition(s) for which he/she received inpatient hospital services prior to his/her transfer to the SNF. SNF inpatient care is necessary for the following reasons Wound Care/Assessment, Med Admininistration, Postop Assessment Care, Diabetic Education, Teach Med Managment, Other (Skilled PT/OT to maximize functional status.) Cardiac or Respiratory Arrest In Event of Arrest: Start CPR,call 911,to ER Resident is Aware of Diagnosis: Yes Additional Orders: F/U with Dr Tamez in 1 week F/U with Efren Grady on 12/03/16 at 10:[address] Perry's office WBAT IS QID for 10 days. Accucheck ac meal, q hs and prn. DIET: no concentrated sweets with chopped 1/4' chopped meats, regular liquids HANSEL SCRUGGS MD Nov 14, 2016 13:22
[2016-11-14 14:01] VITALS: TEMP 97.5
--- NOTE | 2016-11-14 15:45 | NUR ---
DISCHARGE NURSING NOTE PT WAS DISCHARGED FROM THE HOSPITAL AT THIS TIME, VIA WHEELCHAIR, ACCOMPANIED BY TRANSPORTATION STAFF AND HER GRAND-DAUGHTER. THE PT IS ALERT AND ORIENTED [place]. THE PT VITAL SIGNS ARE STABLE, PT ON RA. REPORT WAS CALLED TO DANIELA FRANCO AT [facility] INCLUDING DISCHARGE DIET, ACTIVITY, MEDICATIONS, LEVEL OF ORIENTATION, MOBILITY STATUS AND ALLERGIES. NO CONCERNS NOTED AT TIME OF DISCHARGE. ALL BELONGINGS SENT WITH PT.
--- NOTE | 2016-11-15 14:58 | DSF ---
ADMITTING DIAGNOSIS Right femoral neck fracture. DISCHARGE DIAGNOSIS Right femoral neck fracture. ASSOCIATED CONDITIONS/COMPLICATIONS UTI with Proteus mirabilis. Hypokalemia (present on admission) - resolved. Coronary artery disease. Hypertension. Hyperlipidemia. Type 2 diabetes mellitus. Alzheimer's dementia. Constipation. Dysphagia. Hypothyroidism. History of TIA. CONSULTS Dr. Perry - Orthopedic Surgery. PT/OT/SPEECH PROCEDURES 11/11/2016: Left total hip arthroscopy - Dr. Perry. CLINICAL RESUME Radha Lucia is an 86-year-old female with Alzheimer's dementia who resides at her granddaughter house. Her granddaughter is her caregiver. Radha herself as a poor historian and was unable to answer questions. Review of systems is limited secondary to her dementia and acute pain. Granddaughter, who is there, unfortunately has limited knowledge regarding her past medical history. Per granddaughter's report, she slipped and fell in the kitchen approximately five days ago. She had been ambulatory since then up until two days ago. Granddaughter is worried that she might have fallen again, though it would most likely have been in the night and unwitnessed. The patient is unable to bear weight. She has also been complaining of severe left hip pain. Otherwise, she has been in good health, without recent fevers, chills, URI symptoms, difficulty breathing, nausea, vomiting or urinary changes. She did report stomach flu symptoms about a month ago and since then her appetite hasn't been quite up to par. Granddaughter has been trying to help her into the car but was unable to get her safely loaded. Subsequently, EMS was activated. She was transferred to [facility] Emergency Room for further evaluation of her left hip pain. There she underwent radiographic imaging which did confirm evidence of left hip fracture. While in emergency room she received IM Phenergan and Dilaudid. Dr. Mathews was contacted and patient was subsequently placed in inpatient admission status at [facility] for further evaluation and treatment. For complete details of the H&P refer to that document. LABORATORY White blood count is 10.1 with hemoglobin 13.1, hematocrit 40.0, MCV 80.6 and platelets 256,000. 90% neutrophils with 1% bands are noted. Serum sodium is 142, potassium 3.1, chloride 103, CO2 28, BUN 19 with creatinine 0.7, GFR 79 and blood glucose 209. HgA1c is 10.5%. Transaminases are unremarkable. Troponin I is less than 0.012. Magnesium is 1.6. Prealbumin is 17.2. Vitamin B12 is 308. TSH is elevated at 6.24 with free T4 1.52. INR is 1.28. UA reveals 1+ protein, 2+ glucose, 1+ ketone, trace blood, 1+ leukocyte esterase with 10-20 WBC/HPF and 2+ bacteria. Urine culture ultimately grew out Proteus mirabilis resistant only to nitrofurantoin. 25-Hhydroxyvitamin D total as well as Vitamin D2 and Vitamin D3 are pending. HOSPITAL COURSE The patient was placed in inpatient admission status at [facility] under the care of Dr. Mathews. We did consult with Dr. Perry for orthopedic evaluation of her hip fracture. As surgery was not planned to be on day of presentation she was given a one-time dose of Lovenox. Leggett catheter was placed to maintain comfort. Blood sugars were monitored and we continued Lantus at night. We did hold her aspirin, amlodipine and losartan preoperatively to minimize potential bleeding and postop hypotension. Speech Therapy was asked to see the patient to evaluate swallow. Ultimately, we did find the patient needed a soft diet with chopped meats but was able to utilize regular liquids. On hospital day #1 she did undergo left total hip arthroscopy by Dr. Perry. She tolerated the procedure well. We did initiate scheduled senna as well as MiraLAX to help with bowel motivation. SCDs were continued with subcutaneous Lovenox starting postoperatively. Orthopedic team is recommending continuing Lovenox for 30 days postop. PT/OT were consulted to increase strength and functional status. Overall, her hospital course was one of good improvement. We did find evidence of urinary tract infection and Cephalexin was started for coverage. She did make gains with PT/OT for strength and functional status. Pain did defervesce during the hospitalization and we were able to transition away from Dilaudid. Appetite improved. Bowel function was slow but through use of additional Milk of Magnesia and Dulcolax suppository she was passing bowels by time of discharge. Vitamin B12 returned low normal and so oral vitamin B12 was initiated. Synthroid was started at 0.025 mg in light of her hypothyroidism. We did initiate calcium with vitamin D due to her fracture - vitamin D levels are pending. Granddaughter was hopeful the patient would be able to return home following recovery. However, her gains of ability were slow (not surprising given her advanced age and dementia ). Towards this end Case Management was quite helpful in looking for assisted. Family members requested [facility] and fortunately arrangements were able to be made there. By time of discharge she was eating and drinking well. Vitals were stable and she was afebrile. Her hemoglobin was 10.0 - she did not require transfusion during the hospitalization. Potassium was normal at 3.7 with creatinine normal at 0.7. She was tolerating oral intake and eating well. She was stable for discharge to [facility] to maximize her functional status prior to return to her prior level of care. Narrative disclaimer: Above narrative is a brief summary of the patient's hospitalization. For complete details of hospital course, refer to the medical record. DISCHARGE CONDITION Stable/good. DIET No concentrated sweets, soft diet with chopped meats and regular liquids - no straws. ACTIVITIES Weightbearing as tolerated. MEDICATIONS Calcium with vitamin D 600/400 b.i.d. Cephalexin 500 mg p.o. b.i.d. x 5 days. Vitamin B12 1000 mcg daily. Lovenox 40 mg subcutaneously daily x 27 days. Amaryl 1 mg with breakfast. Lantus 10 units q.h.s. Levothyroxine 0.025 mg with breakfast. MiraLAX 17 g daily. Senna Plus b.i.d. Tylenol 325 mg one to two q.5h. p.r.n. pain. Dulcolax 10 mg RI daily p.r.n. constipation. Trappe 7.5/325 one to two q.4h. p.r.n. pain. Milk of Magnesia 30 mL daily p.r.n. constipation. Zyprexa Zydis 5 mg p.o. q.6h. p.r.n. agitation. Norvasc 10 mg daily. Aspirin 81 mg daily. Atenolol 25 mg b.i.d. Lipitor 20 mg q.h.s. Celexa 20 mg daily. Aricept 10 mg daily. Losartan 100 mg daily. Multivitamin daily. FOLLOWUP 1. The patient will follow with Dr. Tamez in one week for medical reevaluation. 2. The patient will follow with HERMILO Bermudez, on 12/03/2016 at 10:30 a.m. for orthopedic reevaluation. INSTRUCTION TO PATIENT Due to patient's dementia she was not given detailed care instructions. Detailed care instructions were, however, relayed to Hermes. She was encouraged to be adherent with medications and participate well with therapy. She will continue to use incentive spirometry for the next ten days. Accu-Cheks will be monitored. Should problems or need occur, she will be in contact with the nursing staff at [facility] as well as with Dr. Tamez or Dr. Perry. If symptoms become quite dire she can present to emergency room for acute evaluation. She voiced understanding of the above. Time spent with discharge greater than 35 minutes. LEILANI
== END 2016-11-14 15:45 | DRG 470 ==
LOC: ED 12:45 → SRG 15:09 → EDHOLD 15:09 → OBSVTOIN 15:59 → SRG 11-13 12:50
PROVIDERS: ADMIT Internal Medicine; ATTEND Internal Medicine
PROC: 0SRS0J9 Replacement of Left Hip Joint, Femoral Surface with Synthetic Substitute, Cemented, Open Approach (ICD-10-PCS; principal; 2016-11-11 09:15)
DX: S72.012A Unspecified intracapsular fracture of left femur, initial encounter for closed fracture (principal); N39.0 Urinary tract infection, site not specified; E87.6 Hypokalemia; E11.9 Type 2 diabetes mellitus without complications; I25.10 Atherosclerotic heart disease of native coronary artery without angina pectoris; I10 Essential (primary) hypertension; G30.9 Alzheimer's disease, unspecified; F02.80 Dementia in other diseases classified elsewhere, unspecified severity, without behavioral disturbance, psychotic disturbance, mood disturbance, and anxiety; Z79.82 Long term (current) use of aspirin; Z79.4 Long term (current) use of insulin; Z86.73 Personal history of transient ischemic attack (TIA), and cerebral infarction without residual deficits; B96.4 Proteus (mirabilis) (morganii) as the cause of diseases classified elsewhere; W01.0XXA Fall on same level from slipping, tripping and stumbling without subsequent striking against object, initial encounter; Y93.9 Activity, unspecified; Y92.010 Kitchen of single-family (private) house as the place of occurrence of the external cause; Y99.8 Other external cause status
CPT/HCPCS: 36415; 80048; 80053; 81001; 82306; 82607; 82948; 83036; 83735; 84134; 84439; 84443; 84484; 85025; 85610; 86850; 86900; 86901; 87077; 87086; 87186; 90662; 93005